=== PATIENT | male | born 1980 | race Caucasian/White ===

== ENCOUNTER 2016-06-27 13:56 | Emergency (ER) | payer OTHER, SELFPAY ==
--- NOTE | 2016-06-27 14:45 | REP ---
CT Head without contrast HISTORY: Altered mental status COMPARISON: None There is no intraparenchymal hemorrhage, acute infarct, mass or midline shift. The ventricular system is normal in appearance. There is no extra cerebral collection. There is no fracture. The visualized sinuses are clear. IMPRESSION: There is no intracranial lesion. Signed by Mariusz Herman MD 06/27/2016 02:38 P
--- NOTE | 2016-06-27 14:56 | REP ---
Clinical: Shortness of breath . Comparison: 07/30/2015 . Findings: The mediastinum and cardiac silhouette are stable and within normal limits for portable technique. The lung woodard are clear without acute consolidation, effusion, or pneumothorax. Skeletal structures are intact. Impression: No focal consolidation. No acute cardiopulmonary process. Signed by Kenji Cook MD 06/27/2016 02:47 P
[2016-06-27 14:58] LABS: BASO % 0.4 % (0.0-1.0); EOS # 0.1 K/mm3 (0.0-0.50); EOS % 0.7 % (0.0-3.0); LARGE UNSTAINED CELL # 0.3 K/mm3 (0.0-0.4); LARGE UNSTAINED CELL % 2.7 % (0.0-4.0); LYMPH # 2.1 K/mm3 (1.5-4.5); LYMPH % 17.9 % (24.0-44.0); MEAN CORPUSCULAR HEMOGLOBIN 30.1 pg (27.0-33.0); MEAN CORPUSCULAR HGB CONC 34.8 g/dl (32.0-36.5); MEAN CORPUSCULAR VOLUME 86.7 fl (80.0-96.0); MONO # 0.6 K/mm3 (0.0-0.8); MONO % 5.1 % (0.0-5.0); NEUTROPHILS # 8.7 K/mm3 (1.8-7.7); NEUTROPHILS % 73.3 % (36.0-66.0); PLATELET COUNT, AUTOMATED 268 k/mm3 (150-450); RED CELL DISTRIBUTION WIDTH 13.1 % (11.5-14.5); WHITE BLOOD COUNT 11.8 K/mm3 (4.0-10.0)
[2016-06-27 15:01] LABS: ABG BASE EXCESS -0.4 (-2.0-2.0); ABG DEVICE NASAL CANN; ABG PARTIAL PRESSURE CO2 34.3 mmHg (35.0-45.0); ABG PARTIAL PRESSURE O2 102.2 mmHg (75.0-100.0); ABG STANDARD HCO3 24.2 MEQ/L (22.0-26.0); ABG pH (ARTERIAL) 7.444 UNITS (7.350-7.450)
[2016-06-27 15:20] LABS: ALBUMIN 4.3 GM/DL (3.2-5.2); ALBUMIN/GLOBULIN RATIO 1.59 (1.00-1.93); ALKALINE PHOSPHATASE 63 U/L (45-117); ALT/SGPT 31 U/L (12-78); ANION GAP 15 MEQ/L (8-16); AST/SGOT 25 U/L (15-37); BILIRUBIN,DIRECT 0.1 MG/DL (0.0-0.2); BILIRUBIN,TOTAL 0.6 MG/DL (0.2-1.0); BLOOD UREA NITROGEN 11 MG/DL (7-18); CALCIUM LEVEL 9.1 MG/DL (8.5-10.1); CARBON DIOXIDE LEVEL 24 MEQ/L (21-32); CHLORIDE LEVEL 102 MEQ/L (98-107); CREATININE FOR GFR 1.45 MG/DL (0.70-1.30); GLUCOSE, FASTING 174 MG/DL (70-105); POTASSIUM SERUM 3.2 MEQ/L (3.5-5.1); SODIUM LEVEL 141 MEQ/L (136-145)
[2016-06-27 15:51] LABS: AMPHETAMINES LEVEL URINE NEGATIVE (NEGATIVE); BENZODIAZEPINES URINE NEGATIVE (NEGATIVE); COCAINE METABOLITE URINE NEGATIVE (NEGATIVE); CONTROL LINE INT CTR LINE PRESENT; METHADONE URINE NEGATIVE (NEGATIVE); OPIATES URINE NEGATIVE (NEGATIVE); TRICYCLIC ANTIDEPRESS URINE NEGATIVE (NEGATIVE)
[2016-06-27] MEDS ORDERED: POTASSIUM CHLORIDE 10 MEQ SR TABLET As Ordered ONE (16:10)
--- NOTE | 2016-06-27 17:39 | EDDOCDS ---
Nurse's Notes [facility] Name: Tomas Rico Age: 36 yrs Sex: Male : 1980 Arrival Date: 06/27/2016 Time: 13:56 Bed 17 Private MD: Diagnosis: Adverse effect of cannabis (derivatives) Presentation: 06/27 14:05 Presenting complaint: EMS states: Friends were smoking pot while he was in room. Went mcp upstairs to bathroom and came back down hyperventilating and was numb. Denies any drug use. Suicide/Homicide risk assessment- the patient denies having any suicidal and/or homicidal ideations and does not present with any other emotional, behavioral or mental health complaints. Status: Patient is not a special services director or dependent. Transition of care: patient was not received from another setting of care. Care prior to arrival: Glucose check. 147. 14:05 Acuity: LEONID Level 3 [facility] 14:05 Method Of Arrival: Ambulance [facility] Triage Assessment: 15:32 HIV screening NA for this visit Offered previously. The patient is triaged at the [facility] bedside. See Assessment in Nurses Notes section of ED record. Historical: - Allergies: no known allergies; - Home Meds: 1. Unknown - PMHx: none; - PSHx: Knee surgery- Right; Hernia repair- Umbilical; - Social history: Smoking status: Patient uses tobacco products, light tobacco smoker. No barriers to communication noted, The patient speaks fluent [place]rugu[place]. - Family history: Not pertinent. - : The pt / caregiver states he / she is not on anticoagulants. Home medication list is obtained from the patient. - Exposure Risk Screening:: None identified. Screenin:00 Screening information is obtained from the patient. Fall risk: At risk due to apparent ld5 chemical impairment. Assistance ADL's: requires no assistance with activities of daily living. Abuse/DV Screen: The patient / caregiver reports he/she is: not in a situation that causes fear, pain or injury. Nutritional screening: No deficits noted. Advance Directives: Currently, there is no health care proxy. home support is adequate. Assessment: 14:10 General: Appears in no apparent distress, Behavior is drowsy. Pain: Unable to use pain mcp scale. Patient is disoriented. 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 Moves all extremities. Speech pt grunting mostly but does respond with yes or no answers. Cardiovascular: Rhythm is sinus rhythm No ectopy. Respiratory: Airway is patent Respiratory effort is even, unlabored. Derm: Skin is pink, warm & dry. 15:19 General: Appears in no apparent distress. Pain: Unable to use pain scale. Patient is ld5 disoriented. Neurological: pt minimally responsive at this time. Pt unable to follow commands upon this RN's assessment. EENT: Poor dentition noted. Absence of teeth noted - many. Respiratory: Airway is patent Respiratory effort is even, unlabored, Breath sounds are clear bilaterally. GI: Abdomen is non- distended Bowel sounds present X 4 quads. Abd is soft and non tender X 4 quads. Derm: Skin is intact, Skin is dry. 16:13 General: Pt easily arouses to voice. Medicated per orders. Pt able to swallow pills ld5 with no distress. Pt denies pain. Denies any needs. Call tsai within reach. Will continue to monitor. 17:22 General: Pt ambulated through hallway. Tolerated well. Denies pain, dizziness. Provider ld5 aware. Will continue to monitor. 17:36 General: Appears in no apparent distress, Behavior is cooperative. Pain: Denies pain. ld5 Neurological: Level of Consciousness is awake, alert. Respiratory: Airway is patent Respiratory effort is even, unlabored. Vital Signs: 14:22 BP 110 / 57 (auto/); ld5 14:22 Pulse 88 MON; Pulse Ox 97% ; ld5 14:25 BP 109 / 59; Pulse 88; Resp 18; Temp 97.3(TE); Pulse Ox 96% on R/A; Weight 94.6 kg (M); dem1 14:37 BP 107 / 55 (auto/); ld5 14:37 Pulse 84 MON; Pulse Ox 94% ; ld5 14:52 BP 117 / 65 (auto/); ld5 14:52 Pulse 102 MON; Pulse Ox 99% ; ld5 15:07 BP 116 / 63 (auto/); ld5 15:07 Pulse 86 MON; Pulse Ox 96% ; ld5 15:22 BP 118 / 66 (auto/); ld5 15:22 Pulse 90 MON; Pulse Ox 99% ; ld5 15:37 BP 119 / 67 (auto/); ld5 15:37 Pulse 90 MON; Pulse Ox 99% ; ld5 15:52 BP 120 / 67 (auto/); ld5 15:52 Pulse 88 MON; Pulse Ox 98% ; ld5 16:07 BP 125 / 65 (auto/); ld5 16:07 Pulse 88 MON; Pulse Ox 99% ; ld5 16:22 BP 124 / 69 (auto/); ld5 16:22 Pulse 86 MON; Pulse Ox 99% ; ld5 16:37 BP 124 / 71 (auto/); ld5 16:37 Pulse 86 MON; Pulse Ox 99% ; ld5 16:52 BP 127 / 74 (auto/); ld5 16:52 Pulse 84 MON; Pulse Ox 99% ; ld5 17:19 BP 125 / 75; Pulse 88 MON; Resp 16; Temp 98; Pulse Ox 98% on R/A; Pain 0/10; ld5 Vitals: 14:25 Log In Time N/A - ambulance arrival. [facility] ED Course: 13:57 Patient visited by Jaylin Pennington, Petrographer. deg 13:57 Patient moved to Waiting deg 13:58 Patient moved to 17 deg 14:05 Alex Candelario MD is Attending Physician. br1 14:05 Maintain field IV. Dressing intact. Good blood return noted. Site clean & dry. Gauge & mcp site: #18 left hand. 14:09 Triage Initiated [facility] 14:21 Patient visited by Alex Candelario MD. br1 14:26 Patient visited by Daron Lopez. [facility] 14:26 Patient has correct armband on for positive identification. Placed in gown. Bed in low dem1 position. Call light in reach. Side rails up X2. monitoring tech on. Pulse ox on. NIBP on. 14:54 CT Head Without Contrast Returned. EDMS 14:59 -Arterial Blood Gas Sent. km6 15:05 EKG done. (by ED staff). Reviewed by Alex Candelario MD. nb2 15:08 Patient visited by Kiarra Matos. nb2 15:15 Quick cath inserted 16 Fr. Specimen obtained. Returned clear yellow urine. Patient mcp tolerated well. 15:16 Drug Eval Toxicology ED Only Sent. ld5 15:16 Urinalysis Sent. ld5 15:16 Urine Culture Sent. ld5 15:16 Urine collected. straight cath specimen. Urine specimen sent to lab. ld5 15:21 Patient visited by Nemo Rutledge RN. ld5 15:36 Patient visited by Maddie Eid RN. mcp 15:36 The patient / caregiver is instructed regarding the plan of care and ED course. mcp 15:41 Chest, 1 View Returned. EDMS 15:50 Patient visited by Alex Candelario MD. br1 16:14 Patient visited by Nemo Rutledge RN. ld5 17:00 Patient visited by Nemo Rutledge RN. ld5 17:00 No procedures done that require assistance. ld5 17:23 Patient visited by Nemo Rutledge RN. ld5 17:26 [facility] is Referral Physician. br1 17:36 Discontinued lock intact, bleeding controlled, pressure dressing applied, No ld5 redness/swelling at site. 17:38 Patient visited by Nemo Rutledge RN. ld5 Administered Medications: 15:44 Drug: NS 0.9% 1000 ml [sodium chloride 0.9 % intravenous solution] Route: IV; Rate: 150 ld5 mL/hr; Site: left hand; 17:37 Follow up: IV Status: Completed infusion; Infusion discontinued ld5 16:13 Drug: Potassium Chloride 40 mEq [potassium chloride ER 10 mEq tablet,extended release ld5 (4 tabs)] Route: PO; RT: 14:59 ABG's drawn from right radial artery allens test done and positive pressure held for 5 km6 minutes specimen sent pt. tolerated well. Order Results: Lab Order: Acetaminophen Level; SPEC'M 06/27/16 14:39 Test: ACETAMINOPHEN LEVEL; Value: < 2.0; Range: 10.0-30.0; Abnormal: Below low normal; Units: UG/ML; Status: F Lab Order: CBC with Diff; SPEC'M 06/27/16 14:39 Test: WHITE BLOOD COUNT; Value: 11.8; Range: 4.0-10.0; Abnormal: Above high normal; Units: K/mm3; Status: F Test: RED BLOOD COUNT; Value: 4.92; Range: 4.30-6.10; Units: M/mm3; Status: F Test: HEMOGLOBIN; Value: 14.8; Range: 14.0-18.0; Units: g/dl; Status: F Test: HEMATOCRIT; Value: 42.7; Range: 42.0-52.0; Units: %; Status: F Test: MEAN CORPUSCULAR VOLUME; Value: 86.7; Range: 80.0-96.0; Units: fl; Status: F Test: MEAN CORPUSCULAR HEMOGLOBIN; Value: 30.1; Range: 27.0-33.0; Units: pg; Status: F Test: MEAN CORPUSCULAR HGB CONC; Value: 34.8; Range: 32.0-36.5; Units: g/dl; Status: F Test: RED CELL DISTRIBUTION WIDTH; Value: 13.1; Range: 11.5-14.5; Units: %; Status: F Test: PLATELET COUNT, AUTOMATED; Value: 268; Range: 150-450; Units: k/mm3; Status: F Test: NEUTROPHILS %; Value: 73.3; Range: 36.0-66.0; Abnormal: Above high normal; Units: %; Status: F Test: LYMPH %; Value: 17.9; Range: 24.0-44.0; Abnormal: Below low normal; Units: %; Status: F Test: MONO %; Value: 5.1; Range: 0.0-5.0; Abnormal: Above high normal; Units: %; Status: F Test: EOS %; Value: 0.7; Range: 0.0-3.0; Units: %; Status: F Test: BASO %; Value: 0.4; Range: 0.0-1.0; Units: %; Status: F Test: LARGE UNSTAINED CELL %; Value: 2.7; Range: 0.0-4.0; Units: %; Status: F Test: NEUTROPHILS #; Value: 8.7; Range: 1.8-7.7; Abnormal: Above high normal; Units: K/mm3; Status: F Test: LYMPH #; Value: 2.1; Range: 1.5-4.5; Units: K/mm3; Status: F Test: MONO #; Value: 0.6; Range: 0.0-0.8; Units: K/mm3; Status: F Test: EOS #; Value: 0.1; Range: 0.0-0.50; Units: K/mm3; Status: F Test: BASO #; Value: 0.0; Range: 0.0-0.2; Units: K/mm3; Status: F Test: LARGE UNSTAINED CELL #; Value: 0.3; Range: 0.0-0.4; Units: K/mm3; Status: F Lab Order: Cardiac Injury Profile; [facility] 06/27/16 14:39 Test: CPK CREATINE PHOSPHOKINASE; Value: 174; Range: 39-308; Units: U/L; Status: F Test: CK-MB VALUE MASS; Value: 1.4; Range: 0.0-3.6; Units: NG/ML; Status: F Test: MB/CK RELATIVE INDEX; Value: 0.80; Range: < OR =4; Status: F Test Note: ; DIAGNOSIS CRITERIA MMB ng/ml Relative Index (RI) NON-AMI < or = 5 N/A [place] > 5 < or = 4 AMI > 5 > 4 Lab Order: Drug Eval Toxicology ED Only; SPEC'M 06/27/16 15:15 Test: AMPHETAMINES LEVEL URINE; Value: NEGATIVE; Range: NEGATIVE; Status: F Test: BARBITURATES URINE; Value: NEGATIVE; Range: NEGATIVE; Status: F Test: BENZODIAZEPINES URINE; Value: NEGATIVE; Range: NEGATIVE; Status: F Test: CANNABINOIDS URINE; Value: POSITIVE; Range: NEGATIVE; Abnormal: Above high normal; Status: F Test: COCAINE METABOLITE URINE; Value: NEGATIVE; Range: NEGATIVE; Status: F Test: METHADONE URINE; Value: NEGATIVE; Range: NEGATIVE; Status: F Test: OPIATES URINE; Value: NEGATIVE; Range: NEGATIVE; Status: F Test: TRICYCLIC ANTIDEPRESS URINE; Value: NEGATIVE; Range: NEGATIVE; Status: F Test Note: ; FALSE POSITIVE RESULTS CAN BE CAUSED BY THE USE OF PANTOPRAZOLE (PROTONIX). Lab Order: Liver Profile; SPEC'M 06/27/16 14:39 Test: AST/SGOT; Value: 25; Range: 15-37; Units: U/L; Status: F Test: ALT/SGPT; Value: 31; Range: 12-78; Units: U/L; Status: F Test: ALKALINE PHOSPHATASE; Value: 63; Range: 45-117; Units: U/L; Status: F Test: BILIRUBIN,TOTAL; Value: 0.6; Range: 0.2-1.0; Units: MG/DL; Status: F Test: BILIRUBIN,DIRECT; Value: 0.1; Range: 0.0-0.2; Units: MG/DL; Status: F Test: TOTAL PROTEIN; Value: 7.0; Range: 6.4-8.2; Units: GM/DL; Status: F Test: ALBUMIN; Value: 4.3; Range: 3.2-5.2; Units: GM/DL; Status: F Test: ALBUMIN/GLOBULIN RATIO; Value: 1.59; Range: 1.00-1.93; Status: F Lab Order: MED Profile; SPEC'M 06/27/16 14:39 Test: GLUCOSE, FASTING; Value: 174; Range: 70-105; Abnormal: Above high normal; Units: MG/DL; Status: F Test: BLOOD UREA NITROGEN; Value: 11; Range: 7-18; Units: MG/DL; Status: F Test: CREATININE FOR GFR; Value: 1.45; Range: 0.70-1.30; Abnormal: Above high normal; Units: MG/DL; Status: F Test: GLOMERULAR FILTRATION RATE; Value: 59.0; Range: >60; Abnormal: Below low normal; Status: F Test: SODIUM LEVEL; Value: 141; Range: 136-145; Units: MEQ/L; Status: F Test: POTASSIUM SERUM; Value: 3.2; Range: 3.5-5.1; Abnormal: Below low normal; Units: MEQ/L; Status: F Test: CHLORIDE LEVEL; Value: 102; Range: 98-107; Units: MEQ/L; Status: F Test: CARBON DIOXIDE LEVEL; Value: 24; Range: 21-32; Units: MEQ/L; Status: F Test: ANION GAP; Value: 15; Range: 8-16; Units: MEQ/L; Status: F Test: CALCIUM LEVEL; Value: 9.1; Range: 8.5-10.1; Units: MG/DL; Status: F Test Note: ; Units are mL/min/1.73 m2 Chronic Kidney Disease Staging per NKF: Stage I & II GFR >=60 Normal to Mildly Decreased Stage III GFR 30-59 Moderately Decreased Stage IV GFR 15-29 Severely Decreased Stage V GFR <15 Very Little GFR Left ESRD GFR <15 on CRAFT SUPERINTENDENT Lab Order: Salicylate Level; SPEC'M 06/27/16 14:39 Test: SALICYLATE LEVEL; Value: 1.9; Range: 5.0-30.0; Abnormal: Below low normal; Units: MG/DL; Status: F Lab Order: Thyroid Stimulating Hormone; [facility] 06/27/16 14:39 Test: THYROID STIMULATING HORMONE; Value: 0.978; Range: 0.358-3.740; Units: uIU/ML; Status: F Lab Order: Troponin; [facility] 06/27/16 14:39 Test: TROPONIN I; Value: < 0.02; Range: < 0.10; Units: NG/ML; Status: F Test Note: ; Troponin I Reference Interval for [employer] LOCI: 99th Percentile= 0.00-0.045 ng/ml Risk Stratification: <= 0.10 ng/ml Decreased Risk for Adverse Clinical Events. 0.10-1.50 ng/ml Increased Risk for Adverse Clinical Events. Evaluation of additional criterion and/or repeat testing in 2-6 hours is suggested to rule out myocardial damage. >= 1.50 ng/ml Indicative of Myocardial Injury. Lab Order: Urinalysis; [facility] 06/27/16 15:15 Test: APPEARANCE, URINE; Value: CLEAR; Range: CLEAR; Status: F Test: COLOR, URINE; Value: YELLOW; Range: YELLOW; Status: F Test: PH,URINE; Value: 7.0; Range: 5.0-9.0; Units: UNITS; Status: F Test: SPECIFIC GRAVITY URINE AUTO; Value: 1.012; Range: 1.002-1.035; Status: F Test: PROTEIN, URINE AUTO; Value: NEGATIVE; Range: NEGATIVE; Units: mg/dL; Status: F Test: GLUCOSE, URINE (UA) AUTO; Value: NEGATIVE; Range: NEGATIVE; Units: mg/dL; Status: F Test: KETONE, URINE AUTO; Value: NEGATIVE; Range: NEGATIVE; Units: mg/dL; Status: F Test: UROBILINOGEN, URINE AUTO; Value: 0.2; Range: 0.0-2.0; Units: mg/dL; Status: F Test: BILIRUBIN, URINE AUTO; Value: NEGATIVE; Range: NEGATIVE; Status: F Test: NITRITE, URINE AUTO; Value: NEGATIVE; Range: NEGATIVE; Status: F Test: LEUKOCYTE ESTERASE, URINE AUTO; Value: NEGATIVE; Range: NEGATIVE; Status: F Test: BLOOD, URINE BLOOD; Value: NEGATIVE; Range: NEGATIVE; Status: F Test: WBC, URINE AUTO; Value: 2; Range: 0-3; Units: /HPF; Status: F Test: RBC, URINE AUTO; Value: 3; Range: 0-3; Units: /HPF; Status: F Test: BACTERIA, URINE AUTO; Value: NEGATIVE; Range: NEGATIVE; Status: F Test: SQUAMOUS EPITHELIAL CELL UR AU; Value: 0; Range: 0-6; Units: /HPF; Status: F Test: MUCUS, URINE; Value: SMALL; Range: NEGATIVE; Status: F Test: HYALINE CAST, URINE AUTO; Value: 6; Range: 0-1; Units: /LPF; Status: F Lab Order: -Arterial Blood Gas; SPEC' 06/27/16 14:43 Test: ABG pH (ARTERIAL); Value: 7.444; Range: 7.350-7.450; Units: UNITS; Status: F Test: ABG PARTIAL PRESSURE CO2; Value: 34.3; Range: 35.0-45.0; Abnormal: Below low normal; Units: mmHg; Status: F Test: ABG PARTIAL PRESSURE O2; Value: 102.2; Range: 75.0-100.0; Abnormal: Above high normal; Units: mmHg; Status: F Test: ABG TOTAL CO2; Value: 24.0; Range: 22.0-29.0; Units: MEQ/L; Status: F Test: ABG HCO3; Value: 23.0; Range: 22.0-26.0; Units: MEQ/L; Status: F Test: ABG BASE EXCESS; Value: -0.4; Range: -2.0-2.0; Status: F Test: ABG STANDARD HCO3; Value: 24.2; Range: 22.0-26.0; Units: MEQ/L; Status: F Test: ABG O2 SATURATION; Value: 98.0; Range: 95.0-99.0; Units: %; Status: F Test: ABG DEVICE; Value: NASAL LUIS; Status: F Lab Order: ETHYL ALCOHOL (ETHANOL); SPEC' 06/27/16 14:39 Test: ETHYL ALCOHOL (ETHANOL); Value: < 0.003; Range: 0.000-0.010; Units: %; Status: F Radiology Order: CT Head Without Contrast Test: CT Head Without Contrast REASON FOR EXAMINATION: altered mental status eval for ich; CT Head without contrast; ; HISTORY: Altered mental status; ; COMPARISON: None; ; There is no intraparenchymal hemorrhage, acute infarct, mass or midline shift.; The ventricular system is normal in appearance. There is no extra cerebral; collection. There is no fracture. The visualized sinuses are clear.; ; IMPRESSION: There is no intracranial lesion.; ; ; ; ; Signed by; Mariusz Herman MD 06/27/2016 02:38 P; Radiology Order: Chest, 1 View Test: Chest, 1 View REASON FOR EXAMINATION: Shortness of Breath; Clinical: Shortness of breath .; ; Comparison: 07/30/2015 .; ; Findings:; The mediastinum and cardiac silhouette are stable and within normal limits for; portable technique. The lung woodard are clear without acute consolidation,; effusion, or pneumothorax. Skeletal structures are intact.; ; Impression:; No focal consolidation. No acute cardiopulmonary process.; ; ; Signed by; Kenji Cook MD 06/27/2016 02:47 P; Outcome: 17:00 CT Study completed. ld5 17:27 Discharge ordered by Provider. br1 17:36 Discharge Assessment: Patient awake, alert and oriented x 3. No cognitive and/or ld5 functional deficits noted. Patient verbalized understanding of disposition instructions. patient administered narcotics - no. The following High Risk Discharge criteria are identified: None. Discharged to home ambulatory. Condition: stable. Discharge instructions given to patient, Instructed on discharge instructions, follow up and referral plans. Demonstrated understanding of instructions, Pt was receptive of discharge instructions/ teaching. Property :Personal belongings accompany Pt. 17:38 Patient left the ED. ld5 Signatures: Dispatcher [employer] EDMS Jaylin Pennington, Petrographer Unit deg Maddie Eid RN Hazel Bunn mcp 6 Alex Candelario MD MD br1 Nemo Rutledge RN RN ld5 Daron Lopez1 Kiarra Matos nb2 Corrections: (The following items were deleted from the chart) 15:08 15:08 EKG done. (by ED staff). Reviewed by Alex Candelario MD nb2 nb2 MTDD
--- NOTE | 2016-06-27 17:39 | EDDOCDS ---
Physician Documentation [facility] Name: Tomas Rico Age: 36 yrs Sex: Male : 1980 Arrival Date: 06/27/2016 Time: 13:56 Bed 17 Private MD: Disposition: 06/27/16 17:27 Discharged to Home/Self Care. Impression: Adverse effect of cannabis (derivatives). - Condition is Stable. - Discharge Instructions: Marijuana Abuse-Brief. - Medication Reconciliation, Local Pharmacy Hours form. - Follow up: Private Physician; When: 2 - 3 days; Reason: Recheck today's complaints. Follow up: [facility]; When: 2 - 3 days; Reason: Recheck today's complaints. - Problem is new. - Symptoms are resolved. - Notes: You were seen in the ED for altered mental status and hyperventilating after marijuana use. Bloodwork along with EKG of the heart, CT scan of the head, chest XRay and urine tests showed no other acute findings. As your symptoms have resolved you may return home. Refrain from any marijuana use in the future. You will need to see your primary care doctor for a recheck in the office, please call today to arrange to be seen. If you have no doctor you may arrange to be seen at the [facility]. Return to the ED for any return of confusion, trouble breathing, chest pain, fever, or any other concerns. Historical: - Allergies: no known allergies; - Home Meds: 1. Unknown - PMHx: none; - PSHx: Knee surgery- Right; Hernia repair- Umbilical; - Social history: Smoking status: Patient uses tobacco products, light tobacco smoker. No barriers to communication noted, The patient speaks fluent Arabic. - Family history: Not pertinent. - : The pt / caregiver states he / she is not on anticoagulants. Home medication list is obtained from the patient. - Exposure Risk Screening:: None identified. Vital Signs: 06/27 14:22 BP 110 / 57 (auto/); ld5 14:22 Pulse 88 MON; Pulse Ox 97% ; ld5 14:25 BP 109 / 59; Pulse 88; Resp 18; Temp 97.3(TE); Pulse Ox 96% on R/A; Weight 94.6 kg / dem1 208.56 lbs (M); 14:37 BP 107 / 55 (auto/); ld5 14:37 Pulse 84 MON; Pulse Ox 94% ; ld5 14:52 BP 117 / 65 (auto/); ld5 14:52 Pulse 102 MON; Pulse Ox 99% ; ld5 15:07 BP 116 / 63 (auto/); ld5 15:07 Pulse 86 MON; Pulse Ox 96% ; ld5 15:22 BP 118 / 66 (auto/); ld5 15:22 Pulse 90 MON; Pulse Ox 99% ; ld5 15:37 BP 119 / 67 (auto/); ld5 15:37 Pulse 90 MON; Pulse Ox 99% ; ld5 15:52 BP 120 / 67 (auto/); ld5 15:52 Pulse 88 MON; Pulse Ox 98% ; ld5 16:07 BP 125 / 65 (auto/); ld5 16:07 Pulse 88 MON; Pulse Ox 99% ; ld5 16:22 BP 124 / 69 (auto/); ld5 16:22 Pulse 86 MON; Pulse Ox 99% ; ld5 16:37 BP 124 / 71 (auto/); ld5 16:37 Pulse 86 MON; Pulse Ox 99% ; ld5 16:52 BP 127 / 74 (auto/); ld5 16:52 Pulse 84 MON; Pulse Ox 99% ; ld5 17:19 BP 125 / 75; Pulse 88 MON; Resp 16; Temp 98; Pulse Ox 98% on R/A; Pain 0/10; ld5 MDM: 14:19 Clinical Faculty/Pulse Ox/q 15 min VS ordered. br1 14:19 Accucheck ordered. br1 14:19 IV Saline Lock ordered. br1 14:19 Oxygen at 4L/Min NC or Home dosage ordered. br1 14:19 Rhythm Strip to chart ordered. br1 14:20 Call Respiratory ordered. br1 14:21 Acetaminophen Level Ordered. EDMS 14:21 CBC with Diff Ordered. EDMS 14:21 Cardiac Injury Profile Ordered. EDMS 14:21 Drug Eval Toxicology ED Only Ordered. EDMS 14:21 Liver Profile Ordered. EDMS 14:21 MED Profile Ordered. EDMS 14:21 Salicylate Level Ordered. EDMS 14:21 Thyroid Stimulating Hormone Ordered. EDMS 14:21 Troponin Ordered. EDMS 14:21 Urinalysis Ordered. EDMS 14:21 -Arterial Blood Gas Ordered. EDMS 14:21 Urine Culture Ordered. EDMS 14:22 Chest, 1 View Ordered. EDMS 14:22 CT Head Without Contrast Ordered. EDMS 14:22 ECG WITH READING ER PHYS+CARDIAG ordered. EDMS 14:24 ETHYL ALCOHOL (ETHANOL) Ordered. EDMS 14:28 Call Respiratory complete. deg 15:14 CBC with Diff Reviewed. br1 15:14 -Arterial Blood Gas Reviewed. br1 15:14 CT Head Without Contrast Reviewed. br1 15:27 Acetaminophen Level Reviewed. br1 15:27 MED Profile Reviewed. br1 15:27 Salicylate Level Reviewed. br1 15:27 Cardiac Injury Profile Reviewed. br1 15:27 Liver Profile Reviewed. br1 15:27 Thyroid Stimulating Hormone Reviewed. br1 15:27 Troponin Reviewed. br1 15:27 ETHYL ALCOHOL (ETHANOL) Reviewed. br1 15:28 NS 0.9% 1000 ml IV at 150 mL/hr continuous ordered. br1 15:28 Potassium Chloride Extended Release Tablet 40 mEq PO once ordered. br1 15:55 Drug Eval Toxicology ED Only Reviewed. br1 15:55 Urinalysis Reviewed. br1 15:55 Chest, 1 View Reviewed. br1 17:04 Ambulate Patient to Assess Patient Safety ordered. br1 17:38 Financial registration complete. zo Administered Medications: 15:44 Drug: NS 0.9% 1000 ml [sodium chloride 0.9 % intravenous solution] Route: IV; Rate: 150 ld5 mL/hr; Site: left hand; 17:37 Follow up: IV Status: Completed infusion; Infusion discontinued ld5 16:13 Drug: Potassium Chloride 40 mEq [potassium chloride ER 10 mEq tablet,extended release ld5 (4 tabs)] Route: PO; Signatures: Dispatcher [employer] EDMS Jaylin Pennington, Rocket Motor Tester Unit deg Maddie Eid RN RN mcp Olin, Zoeann zo Roggie, Brian, MD MD br1 Nemo Rutledge RN RN ld5 The chart was reviewed and I authenticate all verbal orders and agree with the evaluation and treatment provided.Corrections: (The following items were deleted from the chart) 14:24 14:21 ETHYL ALCOHOL (ETHANOL)+LAB ordered. EDMS EDMS MTDD
--- NOTE | 2016-06-28 19:44 | ECGEPIP ---
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
--- NOTE | 2016-06-29 18:39 | EDDOCDS ---
Physician Documentation [facility] Name: Tomas Rico Age: 36 yrs Sex: Male : 1980 Arrival Date: 06/27/2016 Time: 13:56 Bed 17 Private MD: Disposition: 06/27/16 17:27 Discharged to Home/Self Care. Impression: Adverse effect of cannabis (derivatives). - Condition is Stable. - Discharge Instructions: Marijuana Abuse-Brief. - Medication Reconciliation, Local Pharmacy Hours form. - Follow up: Private Physician; When: 2 - 3 days; Reason: Recheck today's complaints. Follow up[facility]; When: 2 - 3 days; Reason: Recheck today's complaints. - Problem is new. - Symptoms are resolved. - Notes: You were seen in the ED for altered mental status and hyperventilating after marijuana use. Bloodwork along with EKG of the heart, CT scan of the head, chest XRay and urine tests showed no other acute findings. As your symptoms have resolved you may return home. Refrain from any marijuana use in the future. You will need to see your primary care doctor for a recheck in the office, please call today to arrange to be seen. If you have no doctor you may arrange to be seen at the [facility]. Return to the ED for any return of confusion, trouble breathing, chest pain, fever, or any other concerns. Historical: - Allergies: no known allergies; - Home Meds: 1. Unknown - PMHx: none; - PSHx: Knee surgery- Right; Hernia repair- Umbilical; - Social history: Smoking status: Patient uses tobacco products, light tobacco smoker. No barriers to communication noted, The patient speaks fluent Slovenian. - Family history: Not pertinent. - : The pt / caregiver states he / she is not on anticoagulants. Home medication list is obtained from the patient. - Exposure Risk Screening:: None identified. Vital Signs: 06/27 14:22 BP 110 / 57 (auto/); ld5 14:22 Pulse 88 MON; Pulse Ox 97% ; ld5 14:25 BP 109 / 59; Pulse 88; Resp 18; Temp 97.3(TE); Pulse Ox 96% on R/A; Weight 94.6 kg / dem1 208.56 lbs (M); 14:37 BP 107 / 55 (auto/); ld5 14:37 Pulse 84 MON; Pulse Ox 94% ; ld5 14:52 BP 117 / 65 (auto/); ld5 14:52 Pulse 102 MON; Pulse Ox 99% ; ld5 15:07 BP 116 / 63 (auto/); ld5 15:07 Pulse 86 MON; Pulse Ox 96% ; ld5 15:22 BP 118 / 66 (auto/); ld5 15:22 Pulse 90 MON; Pulse Ox 99% ; ld5 15:37 BP 119 / 67 (auto/); ld5 15:37 Pulse 90 MON; Pulse Ox 99% ; ld5 15:52 BP 120 / 67 (auto/); ld5 15:52 Pulse 88 MON; Pulse Ox 98% ; ld5 16:07 BP 125 / 65 (auto/); ld5 16:07 Pulse 88 MON; Pulse Ox 99% ; ld5 16:22 BP 124 / 69 (auto/); ld5 16:22 Pulse 86 MON; Pulse Ox 99% ; ld5 16:37 BP 124 / 71 (auto/); ld5 16:37 Pulse 86 MON; Pulse Ox 99% ; ld5 16:52 BP 127 / 74 (auto/); ld5 16:52 Pulse 84 MON; Pulse Ox 99% ; ld5 17:19 BP 125 / 75; Pulse 88 MON; Resp 16; Temp 98; Pulse Ox 98% on R/A; Pain 0/10; ld5 MDM: 14:19 Forest And Conservation Worker/Pulse Ox/q 15 min VS ordered. br1 14:19 Accucheck ordered. br1 14:19 IV Saline Lock ordered. br1 14:19 Oxygen at 4L/Min NC or Home dosage ordered. br1 14:19 Rhythm Strip to chart ordered. br1 14:20 Call Respiratory ordered. br1 14:21 Acetaminophen Level Ordered. EDMS 14:21 CBC with Diff Ordered. EDMS 14:21 Cardiac Injury Profile Ordered. EDMS 14:21 Drug Eval Toxicology ED Only Ordered. EDMS 14:21 Liver Profile Ordered. EDMS 14:21 MED Profile Ordered. EDMS 14:21 Salicylate Level Ordered. EDMS 14:21 Thyroid Stimulating Hormone Ordered. EDMS 14:21 Troponin Ordered. EDMS 14:21 Urinalysis Ordered. EDMS 14:21 -Arterial Blood Gas Ordered. EDMS 14:21 Urine Culture Ordered. EDMS 14:22 Chest, 1 View Ordered. EDMS 14:22 CT Head Without Contrast Ordered. EDMS 14:22 ECG WITH READING ER PHYS+CARDIAG ordered. EDMS 14:24 ETHYL ALCOHOL (ETHANOL) Ordered. EDMS 14:28 Call Respiratory complete. deg 15:14 CBC with Diff Reviewed. br1 15:14 -Arterial Blood Gas Reviewed. br1 15:14 CT Head Without Contrast Reviewed. br1 15:27 Acetaminophen Level Reviewed. br1 15:27 MED Profile Reviewed. br1 15:27 Salicylate Level Reviewed. br1 15:27 Cardiac Injury Profile Reviewed. br1 15:27 Liver Profile Reviewed. br1 15:27 Thyroid Stimulating Hormone Reviewed. br1 15:27 Troponin Reviewed. br1 15:27 ETHYL ALCOHOL (ETHANOL) Reviewed. br1 15:28 NS 0.9% 1000 ml IV at 150 mL/hr continuous ordered. br1 15:28 Potassium Chloride Extended Release Tablet 40 mEq PO once ordered. br1 15:55 Drug Eval Toxicology ED Only Reviewed. br1 15:55 Urinalysis Reviewed. br1 15:55 Chest, 1 View Reviewed. br1 17:04 Ambulate Patient to Assess Patient Safety ordered. br1 17:38 Financial registration complete. zo 17:50 [facility] Payment Agreement was scanned into [employer] and attached to record. zo 06/28 12:36 T-Sheet-- Draft Copy was scanned into [employer] and attached to record. gb 12:36 ECG/EKG was scanned into [employer] and attached to record. gb 15:03 PCR was scanned into [employer] and attached to record. gb Administered Medications: 06/27 15:44 Drug: NS 0.9% 1000 ml [sodium chloride 0.9 % intravenous solution] Route: IV; Rate: 150 ld5 mL/hr; Site: left hand; 17:37 Follow up: IV Status: Completed infusion; Infusion discontinued ld5 16:13 Drug: Potassium Chloride 40 mEq [potassium chloride ER 10 mEq tablet,extended release ld5 (4 tabs)] Route: PO; Signatures: Dispatcher [employer] EDMS Jaylin Pennington, Loom Fixer Apprentice Unit deg Maddie Eid RN RN mcp Mary Moore, Reg Reg Max Gonzalez Brian, MD MD br1 Rutledge,Nemo,RN RN ld5 The chart was reviewed and I authenticate all verbal orders and agree with the evaluation and treatment provided.Corrections: (The following items were deleted from the chart) 14:24 14:21 ETHYL ALCOHOL (ETHANOL)+LAB ordered. EDMS EDMS Attachments: 17:50 [facility] Payment Agreement zo 06/28 12:36 T-Sheet-- Draft Copy gb 12:36 ECG/EKG gb Chart Complete MTDD
--- NOTE | 2016-06-29 18:39 | EDDOCDS ---
Physician Documentation [facility] Name: Tomas Rico Age: 36 yrs Sex: Male : 1980 Arrival Date: 06/27/2016 Time: 13:56 Bed 17 Private MD: Disposition: 06/27/16 17:27 Discharged to Home/Self Care. Impression: Adverse effect of cannabis (derivatives). - Condition is Stable. - Discharge Instructions: Marijuana Abuse-Brief. - Medication Reconciliation, Local Pharmacy Hours form. - Follow up: Private Physician; When: 2 - 3 days; Reason: Recheck today's complaints. Follow up: [facility]; When: 2 - 3 days; Reason: Recheck today's complaints. - Problem is new. - Symptoms are resolved. - Notes: You were seen in the ED for altered mental status and hyperventilating after marijuana use. Bloodwork along with EKG of the heart, CT scan of the head, chest XRay and urine tests showed no other acute findings. As your symptoms have resolved you may return home. Refrain from any marijuana use in the future. You will need to see your primary care doctor for a recheck in the office, please call today to arrange to be seen. If you have no doctor you may arrange to be seen at the [facility]. Return to the ED for any return of confusion, trouble breathing, chest pain, fever, or any other concerns. Historical: - Allergies: no known allergies; - Home Meds: 1. Unknown - PMHx: none; - PSHx: Knee surgery- Right; Hernia repair- Umbilical; - Social history: Smoking status: Patient uses tobacco products, light tobacco smoker. No barriers to communication noted, The patient speaks fluent Urdu. - Family history: Not pertinent. - : The pt / caregiver states he / she is not on anticoagulants. Home medication list is obtained from the patient. - Exposure Risk Screening:: None identified. Vital Signs: 06/27 14:22 BP 110 / 57 (auto/); ld5 14:22 Pulse 88 MON; Pulse Ox 97% ; ld5 14:25 BP 109 / 59; Pulse 88; Resp 18; Temp 97.3(TE); Pulse Ox 96% on R/A; Weight 94.6 kg / dem1 208.56 lbs (M); 14:37 BP 107 / 55 (auto/); ld5 14:37 Pulse 84 MON; Pulse Ox 94% ; ld5 14:52 BP 117 / 65 (auto/); ld5 14:52 Pulse 102 MON; Pulse Ox 99% ; ld5 15:07 BP 116 / 63 (auto/); ld5 15:07 Pulse 86 MON; Pulse Ox 96% ; ld5 15:22 BP 118 / 66 (auto/); ld5 15:22 Pulse 90 MON; Pulse Ox 99% ; ld5 15:37 BP 119 / 67 (auto/); ld5 15:37 Pulse 90 MON; Pulse Ox 99% ; ld5 15:52 BP 120 / 67 (auto/); ld5 15:52 Pulse 88 MON; Pulse Ox 98% ; ld5 16:07 BP 125 / 65 (auto/); ld5 16:07 Pulse 88 MON; Pulse Ox 99% ; ld5 16:22 BP 124 / 69 (auto/); ld5 16:22 Pulse 86 MON; Pulse Ox 99% ; ld5 16:37 BP 124 / 71 (auto/); ld5 16:37 Pulse 86 MON; Pulse Ox 99% ; ld5 16:52 BP 127 / 74 (auto/); ld5 16:52 Pulse 84 MON; Pulse Ox 99% ; ld5 17:19 BP 125 / 75; Pulse 88 MON; Resp 16; Temp 98; Pulse Ox 98% on R/A; Pain 0/10; ld5 MDM: 14:19 Dietary Worker/Pulse Ox/q 15 min VS ordered. br1 14:19 Accucheck ordered. br1 14:19 IV Saline Lock ordered. br1 14:19 Oxygen at 4L/Min NC or Home dosage ordered. br1 14:19 Rhythm Strip to chart ordered. br1 14:20 Call Respiratory ordered. br1 14:21 Acetaminophen Level Ordered. EDMS 14:21 CBC with Diff Ordered. EDMS 14:21 Cardiac Injury Profile Ordered. EDMS 14:21 Drug Eval Toxicology ED Only Ordered. EDMS 14:21 Liver Profile Ordered. EDMS 14:21 MED Profile Ordered. EDMS 14:21 Salicylate Level Ordered. EDMS 14:21 Thyroid Stimulating Hormone Ordered. EDMS 14:21 Troponin Ordered. EDMS 14:21 Urinalysis Ordered. EDMS 14:21 -Arterial Blood Gas Ordered. EDMS 14:21 Urine Culture Ordered. EDMS 14:22 Chest, 1 View Ordered. EDMS 14:22 CT Head Without Contrast Ordered. EDMS 14:22 ECG WITH READING ER PHYS+CARDIAG ordered. EDMS 14:24 ETHYL ALCOHOL (ETHANOL) Ordered. EDMS 14:28 Call Respiratory complete. deg 15:14 CBC with Diff Reviewed. br1 15:14 -Arterial Blood Gas Reviewed. br1 15:14 CT Head Without Contrast Reviewed. br1 15:27 Acetaminophen Level Reviewed. br1 15:27 MED Profile Reviewed. br1 15:27 Salicylate Level Reviewed. br1 15:27 Cardiac Injury Profile Reviewed. br1 15:27 Liver Profile Reviewed. br1 15:27 Thyroid Stimulating Hormone Reviewed. br1 15:27 Troponin Reviewed. br1 15:27 ETHYL ALCOHOL (ETHANOL) Reviewed. br1 15:28 NS 0.9% 1000 ml IV at 150 mL/hr continuous ordered. br1 15:28 Potassium Chloride Extended Release Tablet 40 mEq PO once ordered. br1 15:55 Drug Eval Toxicology ED Only Reviewed. br1 15:55 Urinalysis Reviewed. br1 15:55 Chest, 1 View Reviewed. br1 17:04 Ambulate Patient to Assess Patient Safety ordered. br1 17:38 Financial registration complete. zo 17:50 [facility] Payment Agreement was scanned into [employer] and attached to record. zo 06/28 12:36 T-Sheet-- Draft Copy was scanned into [employer] and attached to record. gb 12:36 ECG/EKG was scanned into [employer] and attached to record. gb 15:03 PCR was scanned into [employer] and attached to record. gb Administered Medications: 06/27 15:44 Drug: NS 0.9% 1000 ml [sodium chloride 0.9 % intravenous solution] Route: IV; Rate: 150 ld5 mL/hr; Site: left hand; 17:37 Follow up: IV Status: Completed infusion; Infusion discontinued ld5 16:13 Drug: Potassium Chloride 40 mEq [potassium chloride ER 10 mEq tablet,extended release ld5 (4 tabs)] Route: PO; Signatures: Dispatcher [employer] EDMS Jaylin Pennington, Digital Music Instructor Unit deg Maddie Eid RN RN mcp Mary Moore, Reg Reg Max Gonzalez Brian, MD MD br1 Rutledge,Nemo,RN RN ld5 The chart was reviewed and I authenticate all verbal orders and agree with the evaluation and treatment provided.Corrections: (The following items were deleted from the chart) 14:24 14:21 ETHYL ALCOHOL (ETHANOL)+LAB ordered. EDMS EDMS Attachments: 17:50 [facility] Payment Agreement zo 06/28 12:36 T-Sheet-- Draft Copy gb 12:36 ECG/EKG gb Chart Complete MTDD
--- NOTE | 2016-06-29 18:39 | EDDOCDS ---
Nurse's Notes [facility] Name: Roseanne Rico Age: 36 yrs Sex: Male : 1980 Arrival Date: 06/27/2016 Time: 13:56 Bed 17 Private MD: Diagnosis: Adverse effect of cannabis (derivatives) Presentation: 06/27 14:05 Presenting complaint: EMS states: Friends were smoking pot while he was in room. Went mcp upstairs to bathroom and came back down hyperventilating and was numb. Denies any drug use. Suicide/Homicide risk assessment- the patient denies having any suicidal and/or homicidal ideations and does not present with any other emotional, behavioral or mental health complaints. 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 Transition of care: patient was not received from another setting of care. Care prior to arrival: Glucose check. 147. 14:05 Acuity: LEONID Level 3 [facility] 14:05 Method Of Arrival: Ambulance [facility] Triage Assessment: 15:32 HIV screening NA for this visit Offered previously. The patient is triaged at the [facility] bedside. See Assessment in Nurses Notes section of ED record. Historical: - Allergies: no known allergies; - Home Meds: 1. Unknown - PMHx: none; - PSHx: Knee surgery- Right; Hernia repair- Umbilical; - Social history: Smoking status: Patient uses tobacco products, light tobacco smoker. No barriers to communication noted, The patient speaks fluent P[place]. - Family history: Not pertinent. - : The pt / caregiver states he / she is not on anticoagulants. Home medication list is obtained from the patient. - Exposure Risk Screening:: None identified. Screenin:00 Screening information is obtained from the patient. Fall risk: At risk due to apparent ld5 chemical impairment. Assistance ADL's: requires no assistance with activities of daily living. Abuse/DV Screen: The patient / caregiver reports he/she is: not in a situation that causes fear, pain or injury. Nutritional screening: No deficits noted. Advance Directives: Currently, there is no health care proxy. home support is adequate. Assessment: 14:10 General: Appears in no apparent distress, Behavior is drowsy. Pain: Unable to use pain mcp scale. Patient is disoriented. 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 Moves all extremities. Speech pt grunting mostly but does respond with yes or no answers. Cardiovascular: Rhythm is sinus rhythm No ectopy. Respiratory: Airway is patent Respiratory effort is even, unlabored. Derm: Skin is pink, warm & dry. 15:19 General: Appears in no apparent distress. Pain: Unable to use pain scale. Patient is ld5 disoriented. Neurological: pt minimally responsive at this time. Pt unable to follow commands upon this RN's assessment. EENT: Poor dentition noted. Absence of teeth noted - many. Respiratory: Airway is patent Respiratory effort is even, unlabored, Breath sounds are clear bilaterally. GI: Abdomen is non- distended Bowel sounds present X 4 quads. Abd is soft and non tender X 4 quads. Derm: Skin is intact, Skin is dry. 16:13 General: Pt easily arouses to voice. Medicated per orders. Pt able to swallow pills ld5 with no distress. Pt denies pain. Denies any needs. Call tsai within reach. Will continue to monitor. 17:22 General: Pt ambulated through hallway. Tolerated well. Denies pain, dizziness. Provider ld5 aware. Will continue to monitor. 17:36 General: Appears in no apparent distress, Behavior is cooperative. Pain: Denies pain. ld5 Neurological: Level of Consciousness is awake, alert. Respiratory: Airway is patent Respiratory effort is even, unlabored. Vital Signs: 14:22 BP 110 / 57 (auto/); ld5 14:22 Pulse 88 MON; Pulse Ox 97% ; ld5 14:25 BP 109 / 59; Pulse 88; Resp 18; Temp 97.3(TE); Pulse Ox 96% on R/A; Weight 94.6 kg (M); dem1 14:37 BP 107 / 55 (auto/); ld5 14:37 Pulse 84 MON; Pulse Ox 94% ; ld5 14:52 BP 117 / 65 (auto/); ld5 14:52 Pulse 102 MON; Pulse Ox 99% ; ld5 15:07 BP 116 / 63 (auto/); ld5 15:07 Pulse 86 MON; Pulse Ox 96% ; ld5 15:22 BP 118 / 66 (auto/); ld5 15:22 Pulse 90 MON; Pulse Ox 99% ; ld5 15:37 BP 119 / 67 (auto/); ld5 15:37 Pulse 90 MON; Pulse Ox 99% ; ld5 15:52 BP 120 / 67 (auto/); ld5 15:52 Pulse 88 MON; Pulse Ox 98% ; ld5 16:07 BP 125 / 65 (auto/); ld5 16:07 Pulse 88 MON; Pulse Ox 99% ; ld5 16:22 BP 124 / 69 (auto/); ld5 16:22 Pulse 86 MON; Pulse Ox 99% ; ld5 16:37 BP 124 / 71 (auto/); ld5 16:37 Pulse 86 MON; Pulse Ox 99% ; ld5 16:52 BP 127 / 74 (auto/); ld5 16:52 Pulse 84 MON; Pulse Ox 99% ; ld5 17:19 BP 125 / 75; Pulse 88 MON; Resp 16; Temp 98; Pulse Ox 98% on R/A; Pain 0/10; ld5 Vitals: 14:25 Log In Time N/A - ambulance arrival. [facility] ED Course: 13:57 Patient visited by Jaylin Pennington, Boat Captain. deg 13:57 Patient moved to Waiting deg 13:58 Patient moved to 17 deg 14:05 Bobby Candelario MD is Attending Physician. br1 14:05 Maintain field IV. Dressing intact. Good blood return noted. Site clean & dry. Gauge & mcp site: #18 left hand. 14:09 Triage Initiated [facility] 14:21 Patient visited by Bobby Candelario MD. br1 14:26 Patient visited by Daron Lopez. [facility] 14:26 Patient has correct armband on for positive identification. Placed in gown. Bed in low dem1 position. Call light in reach. Side rails up X2. transporter radiology on. Pulse ox on. NIBP on. 14:54 CT Head Without Contrast Returned. EDMS 14:59 -Arterial Blood Gas Sent. km6 15:05 EKG done. (by ED staff). Reviewed by Bobby Candelario MD. nb2 15:08 Patient visited by Kiarra Matos. nb2 15:15 Quick cath inserted 16 Fr. Specimen obtained. Returned clear yellow urine. Patient mcp tolerated well. 15:16 Drug Eval Toxicology ED Only Sent. ld5 15:16 Urinalysis Sent. ld5 15:16 Urine Culture Sent. ld5 15:16 Urine collected. straight cath specimen. Urine specimen sent to lab. ld5 15:21 Patient visited by Nemo Rutledge RN. ld5 15:36 Patient visited by Maddie Eid RN. mcp 15:36 The patient / caregiver is instructed regarding the plan of care and ED course. mcp 15:41 Chest, 1 View Returned. EDMS 15:50 Patient visited by Bobby Candelario MD. br1 16:14 Patient visited by Nemo Rutledge,DANIELA. ld5 17:00 Patient visited by Nemo Rutledge RN. ld5 17:00 No procedures done that require assistance. ld5 17:23 Patient visited by Nemo Rutledge,DANIELA. ld5 17:26 [facility] is Referral Physician. br1 17:36 Discontinued lock intact, bleeding controlled, pressure dressing applied, No ld5 redness/swelling at site. 17:38 Patient visited by Nemo Rutledge RN. ld5 17:50 [facility] Payment Agreement was scanned into [employer] and attached to record. zo 06/28 12:36 T-Sheet-- Draft Copy was scanned into [employer] and attached to record. gb 12:36 ECG/EKG was scanned into [employer] and attached to record. gb 15:03 PCR was scanned into [employer] and attached to record. gb 20:02 EKG-ADULT Returned. EDMS Administered Medications: 06/27 15:44 Drug: NS 0.9% 1000 ml [sodium chloride 0.9 % intravenous solution] Route: IV; Rate: 150 ld5 mL/hr; Site: left hand; 17:37 Follow up: IV Status: Completed infusion; Infusion discontinued ld5 16:13 Drug: Potassium Chloride 40 mEq [potassium chloride ER 10 mEq tablet,extended release ld5 (4 tabs)] Route: PO; RT: 14:59 ABG's drawn from right radial artery allens test done and positive pressure held for 5 km6 minutes specimen sent pt. tolerated well. Order Results: Lab Order: Acetaminophen Level; SPEC'M 06/27/16 14:39 Test: ACETAMINOPHEN LEVEL; Value: < 2.0; Range: 10.0-30.0; Abnormal: Below low normal; Units: UG/ML; Status: F Lab Order: CBC with Diff; SPEC'M 06/27/16 14:39 Test: WHITE BLOOD COUNT; Value: 11.8; Range: 4.0-10.0; Abnormal: Above high normal; Units: K/mm3; Status: F Test: RED BLOOD COUNT; Value: 4.92; Range: 4.30-6.10; Units: M/mm3; Status: F Test: HEMOGLOBIN; Value: 14.8; Range: 14.0-18.0; Units: g/dl; Status: F Test: HEMATOCRIT; Value: 42.7; Range: 42.0-52.0; Units: %; Status: F Test: MEAN CORPUSCULAR VOLUME; Value: 86.7; Range: 80.0-96.0; Units: fl; Status: F Test: MEAN CORPUSCULAR HEMOGLOBIN; Value: 30.1; Range: 27.0-33.0; Units: pg; Status: F Test: MEAN CORPUSCULAR HGB CONC; Value: 34.8; Range: 32.0-36.5; Units: g/dl; Status: F Test: RED CELL DISTRIBUTION WIDTH; Value: 13.1; Range: 11.5-14.5; Units: %; Status: F Test: PLATELET COUNT, AUTOMATED; Value: 268; Range: 150-450; Units: k/mm3; Status: F Test: NEUTROPHILS %; Value: 73.3; Range: 36.0-66.0; Abnormal: Above high normal; Units: %; Status: F Test: LYMPH %; Value: 17.9; Range: 24.0-44.0; Abnormal: Below low normal; Units: %; Status: F Test: MONO %; Value: 5.1; Range: 0.0-5.0; Abnormal: Above high normal; Units: %; Status: F Test: EOS %; Value: 0.7; Range: 0.0-3.0; Units: %; Status: F Test: BASO %; Value: 0.4; Range: 0.0-1.0; Units: %; Status: F Test: LARGE UNSTAINED CELL %; Value: 2.7; Range: 0.0-4.0; Units: %; Status: F Test: NEUTROPHILS #; Value: 8.7; Range: 1.8-7.7; Abnormal: Above high normal; Units: K/mm3; Status: F Test: LYMPH #; Value: 2.1; Range: 1.5-4.5; Units: K/mm3; Status: F Test: MONO #; Value: 0.6; Range: 0.0-0.8; Units: K/mm3; Status: F Test: EOS #; Value: 0.1; Range: 0.0-0.50; Units: K/mm3; Status: F Test: BASO #; Value: 0.0; Range: 0.0-0.2; Units: K/mm3; Status: F Test: LARGE UNSTAINED CELL #; Value: 0.3; Range: 0.0-0.4; Units: K/mm3; Status: F Lab Order: Cardiac Injury Profile; SPEC'M 06/27/16 14:39 Test: CPK CREATINE PHOSPHOKINASE; Value: 174; Range: 39-308; Units: U/L; Status: F Test: CK-MB VALUE MASS; Value: 1.4; Range: 0.0-3.6; Units: NG/ML; Status: F Test: MB/CK RELATIVE INDEX; Value: 0.80; Range: < OR =4; Status: F Test Note: ; DIAGNOSIS CRITERIA MMB ng/ml Relative Index (RI) NON-AMI < or = 5 N/A [place] > 5 < or = 4 AMI > 5 > 4 Lab Order: Drug Eval Toxicology ED Only; SPEC'M 06/27/16 15:15 Test: AMPHETAMINES LEVEL URINE; Value: NEGATIVE; Range: NEGATIVE; Status: F Test: BARBITURATES URINE; Value: NEGATIVE; Range: NEGATIVE; Status: F Test: BENZODIAZEPINES URINE; Value: NEGATIVE; Range: NEGATIVE; Status: F Test: CANNABINOIDS URINE; Value: POSITIVE; Range: NEGATIVE; Abnormal: Above high normal; Status: F Test: COCAINE METABOLITE URINE; Value: NEGATIVE; Range: NEGATIVE; Status: F Test: METHADONE URINE; Value: NEGATIVE; Range: NEGATIVE; Status: F Test: OPIATES URINE; Value: NEGATIVE; Range: NEGATIVE; Status: F Test: TRICYCLIC ANTIDEPRESS URINE; Value: NEGATIVE; Range: NEGATIVE; Status: F Test Note: ; FALSE POSITIVE RESULTS CAN BE CAUSED BY THE USE OF PANTOPRAZOLE (PROTONIX). Lab Order: Liver Profile; SPEC'M 06/27/16 14:39 Test: AST/SGOT; Value: 25; Range: 15-37; Units: U/L; Status: F Test: ALT/SGPT; Value: 31; Range: 12-78; Units: U/L; Status: F Test: ALKALINE PHOSPHATASE; Value: 63; Range: 45-117; Units: U/L; Status: F Test: BILIRUBIN,TOTAL; Value: 0.6; Range: 0.2-1.0; Units: MG/DL; Status: F Test: BILIRUBIN,DIRECT; Value: 0.1; Range: 0.0-0.2; Units: MG/DL; Status: F Test: TOTAL PROTEIN; Value: 7.0; Range: 6.4-8.2; Units: GM/DL; Status: F Test: ALBUMIN; Value: 4.3; Range: 3.2-5.2; Units: GM/DL; Status: F Test: ALBUMIN/GLOBULIN RATIO; Value: 1.59; Range: 1.00-1.93; Status: F Lab Order: [facility] Profile; [facility]' 06/27/16 14:39 Test: GLUCOSE, FASTING; Value: 174; Range: 70-105; Abnormal: Above high normal; Units: MG/DL; Status: F Test: BLOOD UREA NITROGEN; Value: 11; Range: 7-18; Units: MG/DL; Status: F Test: CREATININE FOR GFR; Value: 1.45; Range: 0.70-1.30; Abnormal: Above high normal; Units: MG/DL; Status: F Test: GLOMERULAR FILTRATION RATE; Value: 59.0; Range: >60; Abnormal: Below low normal; Status: F Test: SODIUM LEVEL; Value: 141; Range: 136-145; Units: MEQ/L; Status: F Test: POTASSIUM SERUM; Value: 3.2; Range: 3.5-5.1; Abnormal: Below low normal; Units: MEQ/L; Status: F Test: CHLORIDE LEVEL; Value: 102; Range: 98-107; Units: MEQ/L; Status: F Test: CARBON DIOXIDE LEVEL; Value: 24; Range: 21-32; Units: MEQ/L; Status: F Test: ANION GAP; Value: 15; Range: 8-16; Units: MEQ/L; Status: F Test: CALCIUM LEVEL; Value: 9.1; Range: 8.5-10.1; Units: MG/DL; Status: F Test Note: ; Units are mL/min/1.73 m2 Chronic Kidney Disease Staging per NKF: Stage I & II GFR >=60 Normal to Mildly Decreased Stage III GFR 30-59 Moderately Decreased Stage IV GFR 15-29 Severely Decreased Stage V GFR <15 Very Little GFR Left ESRD GFR <15 on DIRECTOR SPEECH AND HEARING Lab Order: Salicylate Level; SPEC' 06/27/16 14:39 Test: SALICYLATE LEVEL; Value: 1.9; Range: 5.0-30.0; Abnormal: Below low normal; Units: MG/DL; Status: F Lab Order: Thyroid Stimulating Hormone; SPEC' 06/27/16 14:39 Test: THYROID STIMULATING HORMONE; Value: 0.978; Range: 0.358-3.740; Units: uIU/ML; Status: F Lab Order: Troponin; [facility]' 06/27/16 14:39 Test: TROPONIN I; Value: < 0.02; Range: < 0.10; Units: NG/ML; Status: F Test Note: ; Troponin I Reference Interval for Siemens Centrafuse LOCI: 99th Percentile= 0.00-0.045 ng/ml Risk Stratification: <= 0.10 ng/ml Decreased Risk for Adverse Clinical Events. 0.10-1.50 ng/ml Increased Risk for Adverse Clinical Events. Evaluation of additional criterion and/or repeat testing in 2-6 hours is suggested to rule out myocardial damage. >= 1.50 ng/ml Indicative of Myocardial Injury. Lab Order: Urinalysis; SPEC' 06/27/16 15:15 Test: APPEARANCE, URINE; Value: CLEAR; Range: CLEAR; Status: F Test: COLOR, URINE; Value: YELLOW; Range: YELLOW; Status: F Test: PH,URINE; Value: 7.0; Range: 5.0-9.0; Units: UNITS; Status: F Test: SPECIFIC GRAVITY URINE AUTO; Value: 1.012; Range: 1.002-1.035; Status: F Test: PROTEIN, URINE AUTO; Value: NEGATIVE; Range: NEGATIVE; Units: mg/dL; Status: F Test: GLUCOSE, URINE (UA) AUTO; Value: NEGATIVE; Range: NEGATIVE; Units: mg/dL; Status: F Test: KETONE, URINE AUTO; Value: NEGATIVE; Range: NEGATIVE; Units: mg/dL; Status: F Test: UROBILINOGEN, URINE AUTO; Value: 0.2; Range: 0.0-2.0; Units: mg/dL; Status: F Test: BILIRUBIN, URINE AUTO; Value: NEGATIVE; Range: NEGATIVE; Status: F Test: NITRITE, URINE AUTO; Value: NEGATIVE; Range: NEGATIVE; Status: F Test: LEUKOCYTE ESTERASE, URINE AUTO; Value: NEGATIVE; Range: NEGATIVE; Status: F Test: BLOOD, URINE BLOOD; Value: NEGATIVE; Range: NEGATIVE; Status: F Test: WBC, URINE AUTO; Value: 2; Range: 0-3; Units: /HPF; Status: F Test: RBC, URINE AUTO; Value: 3; Range: 0-3; Units: /HPF; Status: F Test: BACTERIA, URINE AUTO; Value: NEGATIVE; Range: NEGATIVE; Status: F Test: SQUAMOUS EPITHELIAL CELL UR AU; Value: 0; Range: 0-6; Units: /HPF; Status: F Test: MUCUS, URINE; Value: SMALL; Range: NEGATIVE; Status: F Test: HYALINE CAST, URINE AUTO; Value: 6; Range: 0-1; Units: /LPF; Status: F Lab Order: Urine Culture; SPEC'M 06/27/16 15:15 Test: URINE CULTURE; Value: <EXTERNAL COMMENT eCWMed> FULL REPORT IN LAB NOTES (eCW and Medent).; Status: F Test: URINE CULTURE; Value: URINE CULTURE RESULT NO GROWTH; Status: F Lab Order: -Arterial Blood Gas; SPEC'M 06/27/16 14:43 Test: ABG pH (ARTERIAL); Value: 7.444; Range: 7.350-7.450; Units: UNITS; Status: F Test: ABG PARTIAL PRESSURE CO2; Value: 34.3; Range: 35.0-45.0; Abnormal: Below low normal; Units: mmHg; Status: F Test: ABG PARTIAL PRESSURE O2; Value: 102.2; Range: 75.0-100.0; Abnormal: Above high normal; Units: mmHg; Status: F Test: ABG TOTAL CO2; Value: 24.0; Range: 22.0-29.0; Units: MEQ/L; Status: F Test: ABG HCO3; Value: 23.0; Range: 22.0-26.0; Units: MEQ/L; Status: F Test: ABG BASE EXCESS; Value: -0.4; Range: -2.0-2.0; Status: F Test: ABG STANDARD HCO3; Value: 24.2; Range: 22.0-26.0; Units: MEQ/L; Status: F Test: ABG O2 SATURATION; Value: 98.0; Range: 95.0-99.0; Units: %; Status: F Test: ABG DEVICE; Value: NASAL LUIS; Status: F Lab Order: ETHYL ALCOHOL (ETHANOL); SPEC'M 06/27/16 14:39 Test: ETHYL ALCOHOL (ETHANOL); Value: < 0.003; Range: 0.000-0.010; Units: %; Status: F Radiology Order: CT Head Without Contrast Test: CT Head Without Contrast REASON FOR EXAMINATION: altered mental status eval for ich; CT Head without contrast; ; HISTORY: Altered mental status; ; COMPARISON: None; ; There is no intraparenchymal hemorrhage, acute infarct, mass or midline shift.; The ventricular system is normal in appearance. There is no extra cerebral; collection. There is no fracture. The visualized sinuses are clear.; ; IMPRESSION: There is no intracranial lesion.; ; ; ; ; Signed by; Mariusz Herman MD 06/27/2016 02:38 P; Radiology Order: Chest, 1 View Test: Chest, 1 View REASON FOR EXAMINATION: Shortness of Breath; Clinical: Shortness of breath .; ; Comparison: 07/30/2015 .; ; Findings:; The mediastinum and cardiac silhouette are stable and within normal limits for; portable technique. The lung woodard are clear without acute consolidation,; effusion, or pneumothorax. Skeletal structures are intact.; ; Impression:; No focal consolidation. No acute cardiopulmonary process.; ; ; Signed by; Kenji Cook MD 06/27/2016 02:47 P; Radiology Order: EKG-ADULT Test: EKG-ADULT REASON FOR EXAMINATION: dysrhythmia; Stationary ECG Study; [facility] ED; ; Test Date: 2016-06-27; Pat Name: ROSEANNE RICO Department:; Room: -; Gender: M Community Relations Director: angie; : 1980 Requested By: BOBBY Mack; Order Number: [id number] Reading MD: Erum Ross; Measurements; Intervals [place]; Rate: 88 P: 30; DC: 140 QRS: 15; QRSD: 114 T: 29; QT: 384; QTc: 465; Interpretive Statements; SINUS RHYTHM; MODERATE INTRAVENTRICULAR CONDUCTION DELAY; PROLONGED QTC; NO PRIOR FOR COMPARISON; Electronically Signed On 06-28-2016 19:44:33 EST by Erum Ross; Outcome: 17:00 CT Study completed. ld5 17:27 Discharge ordered by Provider. br1 17:36 Discharge Assessment: Patient awake, alert and oriented x 3. No cognitive and/or ld5 functional deficits noted. Patient verbalized understanding of disposition instructions. patient administered narcotics - no. The following High Risk Discharge criteria are identified: None. Discharged to home ambulatory. Condition: stable. Discharge instructions given to patient, Instructed on discharge instructions, follow up and referral plans. Demonstrated understanding of instructions, Pt was receptive of discharge instructions/ teaching. Property :Personal belongings accompany Pt. 17:38 Patient left the ED. ld5 Signatures: Dispatcher [employer] EDMS Jaylin Pennington, Boat Captain Unit deg Maddie Eid, RN RN Mary Hermosillo, Hazel Padilla km6 Max Woodson Brian, MD MD br1 Nemo Rutledge RN RN ld5 Daron Lopez1 Kiarra Matos nb2 Corrections: (The following items were deleted from the chart) 15:08 15:08 EKG done. (by ED staff). Reviewed by Bobby Candelario MD nb2 nb2 Chart Complete MTDD
== END 2016-06-27 17:38 | disposition home or self-care (01) ==
LOC: M ED 13:56
DX: R41.82 Altered mental status, unspecified (principal); T40.7X5A Adverse effect of cannabis (derivatives), initial encounter; X58.XXXA Exposure to other specified factors, initial encounter; Y92.89 Other specified places as the place of occurrence of the external cause; Y93.89 Activity, other specified; Y99.8 Other external cause status; F17.210 Nicotine dependence, cigarettes, uncomplicated
CPT/HCPCS: 36415; 36600; 70450; 71010; 80048; 80076; 80306; 81001; 82550; 82553; 82803; 84443; 85025; 87086; 93005; 93041; 96360; 96361; 99285; G0480

== ENCOUNTER 2016-08-08 16:44 | Emergency (ER) | payer SELFPAY ==
[~2016-08-08] VITALS: Ht 172.7 cm; Wt 93.4 kg
[2016-08-08 18:46] LABS: BASO % 0.6 % (0.0-1.0); EOS % 1.1 % (0.0-3.0); LARGE UNSTAINED CELL # 0.1 K/mm3 (0.0-0.4); LARGE UNSTAINED CELL % 3.7 % (0.0-4.0); LYMPH # 1.1 K/mm3 (1.5-4.5); LYMPH % 31.3 % (24.0-44.0); MEAN CORPUSCULAR HEMOGLOBIN 30.6 pg (27.0-33.0); MEAN CORPUSCULAR HGB CONC 34.2 g/dl (32.0-36.5); MEAN CORPUSCULAR VOLUME 89.6 fl (80.0-96.0); MONO # 0.2 K/mm3 (0.0-0.8); NEUTROPHILS # 1.8 K/mm3 (1.8-7.7); NEUTROPHILS % 56.2 % (36.0-66.0); PLATELET COUNT, AUTOMATED 179 k/mm3 (150-450); RED CELL DISTRIBUTION WIDTH 13.6 % (11.5-14.5); WHITE BLOOD COUNT 3.2 K/mm3 (4.0-10.0)
--- NOTE | 2016-08-08 18:47 | REP ---
Clinical: Cough and fever . Comparison: 06/27/2016 . Technique: PA and lateral. Findings: The mediastinum and cardiac silhouette are normal. The lung woodard are clear and without acute consolidation, effusion, or pneumothorax. The skeletal structures are intact and normal. Impression: 1. No acute cardiopulmonary process. Signed by Kenji Cook MD 08/08/2016 06:39 P
[2016-08-08 19:06] LABS: ANION GAP 4 MEQ/L (8-16); BLOOD UREA NITROGEN 7 MG/DL (7-18); CALCIUM LEVEL 8.8 MG/DL (8.5-10.1); CARBON DIOXIDE LEVEL 32 MEQ/L (21-32); CHLORIDE LEVEL 105 MEQ/L (98-107); CREATININE FOR GFR 1.11 MG/DL (0.70-1.30); GLOMERULAR FILTRATION RATE > 60.0 (>60); GLUCOSE, FASTING 89 MG/DL (70-105); POTASSIUM SERUM 4.2 MEQ/L (3.5-5.1); SODIUM LEVEL 141 MEQ/L (136-145)
[2016-08-08] MEDS ORDERED: MOTR200T44 PO (20:40)
[2016-08-08 20:44] VITALS: BP 122/71
== END 2016-08-08 21:02 | disposition home or self-care (01) ==
LOC: M ED 18:44
DX: J06.9 Acute upper respiratory infection, unspecified (principal); F17.200 Nicotine dependence, unspecified, uncomplicated

== ENCOUNTER 2018-10-21 11:58 | Emergency (ER) | payer MEDICAID, OTHER ==
[~2018-10-21] VITALS: Ht 172.7 cm; Wt 94.1 kg
[~2018-10-21 11:58] MED LIST: MOTR200T44 PO
[2018-10-21] MEDS ORDERED: NS 1,000 ML IV SCH (12:15)
[2018-10-21] MEDS ORDERED: PANTOPRAZOLE 40MG INJ (PROTONIX) (C9113) IV ONE (12:15)
[2018-10-21 12:27] LABS: BASO % 0.4 % (0.0-1.0); EOS % 0.4 % (0.0-3.0); HEMATOCRIT 44.5 % (42.0-52.0); HEMOGLOBIN 15.7 g/dl (13.5-17.5); LYMPH # 1.5 10^3/uL (1.5-4.5); LYMPH % 16.3 % (24.0-44.0); MEAN CORPUSCULAR HEMOGLOBIN 30.5 pg (27.0-33.0); MEAN CORPUSCULAR HGB CONC 35.3 g/dl (32.0-36.5); MEAN CORPUSCULAR VOLUME 86.4 fl (80.0-96.0); MONO # 0.5 10^3/uL (0.0-0.8); MONO % 5.1 % (0.0-5.0); NEUTROPHILS # 7.2 10^3/uL (1.8-7.7); NEUTROPHILS % 77.4 % (36.0-66.0); PLATELET COUNT, AUTOMATED 252 10^3/uL (150-450); RED BLOOD COUNT 5.15 10^6/uL (4.30-6.10); WHITE BLOOD COUNT 9.4 10^3/uL (4.0-10.0)
[2018-10-21 12:38] LABS: INR 0.96; PROTHROMBIN TIME 12.9 SECONDS (12.1-14.4)
--- NOTE | 2018-10-21 12:44 | REP ---
Chest one-view HISTORY: Chest pain Comparison: 08/08/2016 The lungs are clear. The heart is normal in size. The pulmonary vasculature is normal in appearance. Impression: No acute disease. Electronically Signed by Mariusz Herman MD 10/21/2018 12:35 P
[2018-10-21] MEDS ORDERED: KETOROLAC 30 MG/ML VIAL (J1885) IV ONE (13:00)
[2018-10-21 13:07] LABS: ALBUMIN 4.2 GM/DL (3.2-5.2); ALT/SGPT 36 U/L (12-78); BILIRUBIN,DIRECT 0.1 MG/DL (0.0-0.2); BILIRUBIN,TOTAL 0.4 MG/DL (0.2-1.0); BLOOD UREA NITROGEN 13 MG/DL (7-18); CALCIUM LEVEL 9.6 MG/DL (8.5-10.1); CARBON DIOXIDE LEVEL 26 MEQ/L (21-32); CHLORIDE LEVEL 102 MEQ/L (98-107); CK-MB VALUE MASS < 1.0 NG/ML (<3.6); CPK CREATINE PHOSPHOKINASE 131 U/L (39-308); CREATININE FOR GFR 1.17 MG/DL (0.70-1.30); GLOMERULAR FILTRATION RATE > 60.0 (>60); GLUCOSE, FASTING 144 MG/DL (70-100); LIPASE 114 U/L (73-393); MB/CK RELATIVE INDEX 0.76 (< OR =4); NT-PRO BNP 32 PG/ML (<125); POTASSIUM SERUM 4.1 MEQ/L (3.5-5.1); SODIUM LEVEL 137 MEQ/L (136-145); THYROID STIMULATING HORMONE 0.934 uIU/ML (0.358-3.740); TOTAL PROTEIN 7.6 GM/DL (6.4-8.2); TROPONIN I < 0.02 NG/ML (< 0.10)
[2018-10-21] MEDS ORDERED: ISOVUE-370 76% 100ML VIAL (Q9967) As Ordered ONE (13:14)
[2018-10-21] MEDS ORDERED: MORPHINE 4 MG/ML 1ML VIAL/SYRINGE (J2270) IV ONE (13:15)
[2018-10-21] MEDS ORDERED: PROT1TAB2 PO (14:13)
[2018-10-21] MEDS ORDERED: NAPR-837 PO (14:13)
[2018-10-21 14:31] VITALS: BP 122/84
--- NOTE | 2018-10-21 14:40 | REP ---
CT abdomen with IV but without oral contrast: History: Left upper quadrant abdomen pain. CT contrast dose: 100 mL of intravenous Isovue 370. CT findings: Digital preliminary nailer machine radiograph is unremarkable. The lung bases are clear. There is moderate fatty infiltration of the liver with some areas of fat sparing near the gallbladder. No abnormality is seen in the gallbladder or pancreas. No adrenal lesion is seen on either side. The spleen is normal in size and homogeneous in texture. The kidneys enhance symmetrically and are morphologically intact. There is scattered left colonic diverticulosis involving the splenic flexure but there is no CT evidence of diverticulitis. There is no evidence of free intraperitoneal air or abnormal fluid collection. Small and large intestinal bowel loops are normal as visualized. A normal appendix is seen. Impression: Scattered left colonic diverticulosis changes without evidence of diverticulitis. Moderate fatty infiltration of the liver. Otherwise negative CT study of the abdomen with IV contrast. Electronically Signed by Madhav Dawson MD 10/21/2018 08:31 P
--- NOTE | 2018-10-21 16:22 | ECGEPIP ---
[facility] - ED Test Date: 2018-10-21 Pat Name: ROSEANNE POTTS Department: Room: - Gender: Male Quality Assurance Specialist: tc : 1980 Requested By: Erum Ross Order Number: [id number] Reading MD: Erum Ross Measurements Intervals [place] Rate: 68 P: 28 TX: 137 QRS: 16 QRSD: 117 T: 30 QT: 381 QTc: 408 Interpretive Statements SINUS RHYTHM MODERATE INTRAVENTRICULAR CONDUCTION DELAY SHORTER QTC COMPARED 06/27/16 Electronically Signed on 10-21-2018 16:21:58 EDT by Erum Ross
== END 2018-10-21 14:37 | disposition home or self-care (01) ==
LOC: M ED 11:58
DX: R10.9 Unspecified abdominal pain (principal); I45.9 Conduction disorder, unspecified; K57.30 Diverticulosis of large intestine without perforation or abscess without bleeding; K76.0 Fatty (change of) liver, not elsewhere classified; Z72.0 Tobacco use
CPT/HCPCS: 71045; 74160; 80048; 80076; 82550; 82553; 83690; 83880; 84443; 85025; 85610; 93005; 93041; 94760; 96361; 96374; 96375; 99285; C9113; J1885; J2270; Q9967

== ENCOUNTER → 2020-02-20 | Outpatient (CLI) | payer OTHER ==
[~2020-02-20] MED LIST changes: +ATOR1TAB21 PO; +HYDR-3363 PO; +NAPR-837 PO; +PROT1TAB2 PO
== END ==
LOC: M LABSMTC 09:39
PROVIDERS: ATTEND Anesthesiology
DX: Z01.812 Encounter for preprocedural laboratory examination (principal); Z20.828 Contact with and (suspected) exposure to other viral communicable diseases
CPT/HCPCS: C9803; U0003

== ENCOUNTER 2020-02-25 11:23 | Day surgery (SDC) | payer OTHER ==
[~2020-02-25] VITALS: Ht 170.2 cm; Wt 90.3 kg
[~2020-02-25 11:23] MED LIST changes: +NS 1,000 ML IV ONE
[2020-02-25] MEDS ORDERED: fentaNYL 100 MCG/2 ML INJECTION (J3010) As Ordered ONE (12:32)
[2020-02-25] MEDS ORDERED: propofoL 500 MG/50 ML VIAL As Ordered ONE (12:32)
[2020-02-25] MEDS ORDERED: LIDOCAINE 2% 100MG/5ML SDV (FOR ANES.) As Ordered ONE (12:32)
--- NOTE | 2020-02-25 12:34 | ROOR ---
Patient Name: Tomas iRco Procedure Date: 02/25/2020 12:15 PM Date of : 1980 Age: 39 Room: [facility] Gender: Male Note Status: Finalized Procedure: Upper Endoscopy + Biopsies Indications: Upper abdominal pain Providers: Erasmo Shearer MD Referring MD: Felicity Martins NP Requesting Provider: Medicines: Monitored Anesthesia Care Complications: No immediate complications. Procedure: Pre-Anesthesia Assessment: - The heart rate, respiratory rate, oxygen saturations, blood pressure, adequacy of pulmonary ventilation, and response to care were monitored throughout the procedure. The Endoscope was introduced through the mouth, and advanced to the second part of duodenum. The upper GI endoscopy was accomplished without difficulty. The patient tolerated the procedure well. Findings: The Z-line was variable and was found 40 cm from the incisors. Multiple biopsies were obtained with cold forceps for evaluation to rule out Kang's Esophagus randomly at the gastroesophageal junction. No other significant abnormalities were identified in a careful examination of the stomach. Biopsies were taken with a cold forceps in the gastric antrum for Helicobacter pylori testing. The exam of the duodenum was otherwise normal. Impression: - Z-line variable, 40 cm from the incisors. - Multiple biopsies were obtained at the gastroesophageal junction. - Biopsies were taken with a cold forceps for Helicobacter pylori testing. - The examination was otherwise normal. Recommendation: - Patient has a contact number available for emergencies. The signs and symptoms of potential delayed complications were discussed with the patient. Return to normal activities tomorrow. Written discharge instructions were provided to the patient. - High fiber diet. - Discharge patient to home. - Follow an antireflux regimen. - Continue present medications. - Await pathology results. - Telephone GI clinic for pathology results in 1 week. - Return to referring physician. - The findings and recommendations were discussed with the patient. Erasmo Shearer MD Erasmo Shearer MD 02/25/2020 12:33:30 PM Electronically signed by Erasmo Shearer MD Number of Addenda: 0 Note Initiated On: 02/25/2020 12:15 PM Estimated Blood Loss: Estimated blood loss: none.
[2020-02-25 12:55] VITALS: BP 117/83
== END 2020-02-25 13:03 | disposition home or self-care (01) ==
LOC: M OPP 11:23
PROVIDERS: ATTEND Internal Medicine Gastroenterology
DX: R10.10 Upper abdominal pain, unspecified (principal); K22.8 Other specified diseases of esophagus
CPT/HCPCS: 43239; 88305; J3010

== ENCOUNTER → 2021-06-08 | Outpatient (CLI) | payer OTHER ==
[~2021-06-08] MED LIST changes: +EQ M PO; -NS 1,000 ML IV ONE; +PARO5TAB PO; +SERT-141 PO
== END ==
LOC: M LABSMTC 09:29
PROVIDERS: ATTEND Anesthesiology
DX: Z01.812 Encounter for preprocedural laboratory examination (principal); Z20.822 Contact with and (suspected) exposure to COVID-19

== ENCOUNTER 2021-06-13 07:37 | Day surgery (SDC) | payer OTHER ==
[~2021-06-13] VITALS: Ht 172.7 cm; Wt 89.8 kg
[~2021-06-13 07:37] MED LIST changes: +NS 1,000 ML IV ONE
[2021-06-13] MEDS ORDERED: LIDOCAINE 2% 100MG/5ML SDV (FOR ANES.) As Ordered ONE (08:17)
[2021-06-13] MEDS ORDERED: fentaNYL 100 MCG/2 ML INJECTION (J3010) As Ordered ONE (08:17)
[2021-06-13] MEDS ORDERED: propofoL 500 MG/50 ML VIAL As Ordered ONE (08:17)
[2021-06-13 09:30] VITALS: BP 111/70
== END 2021-06-13 09:41 | disposition home or self-care (01) ==
LOC: M OPP 07:37
PROVIDERS: ATTEND Internal Medicine Gastroenterology
DX: K63.5 Polyp of colon (principal); K57.30 Diverticulosis of large intestine without perforation or abscess without bleeding; K64.0 First degree hemorrhoids; R19.4 Change in bowel habit; K20.91 Esophagitis, unspecified with bleeding; K29.70 Gastritis, unspecified, without bleeding; K44.9 Diaphragmatic hernia without obstruction or gangrene; R12 Heartburn; Z79.899 Other long term (current) drug therapy; F17.210 Nicotine dependence, cigarettes, uncomplicated
CPT/HCPCS: 43239; 45380; 88305; J3010

== ENCOUNTER → 2021-09-19 | Outpatient (CLI) | payer OTHER ==
[~2021-09-19] MED LIST changes: -NS 1,000 ML IV ONE
== END ==
LOC: M CARPUL 07:56
PROVIDERS: ATTEND Nurse Practitioner Family
DX: R06.02 Shortness of breath (principal)

== ENCOUNTER 2023-02-22 15:47 | Emergency (ER) | payer OTHER ==
[~2023-02-22] VITALS: Ht 172.7 cm; Wt 83.9 kg
[2023-02-22] MEDS ORDERED: LORazepam 2 MG/ML 1ML VIAL IV STA (16:27)
[2023-02-22 17:02] LABS: LIPASE 30 U/L (12-53)
[2023-02-22 17:05] LABS: ALBUMIN 5.1 G/DL (3.2-5.2); ALKALINE PHOSPHATASE 71 U/L (46-116); ALT/SGPT 13 U/L (7.0-40); AST/SGOT 21 U/L (<34); BILIRUBIN,DIRECT 0.4 MG/DL (<0.4); BILIRUBIN,TOTAL 0.9 MG/DL (0.3-1.2); BLOOD UREA NITROGEN 9 MG/DL (9-23); CALCIUM LEVEL 10.5 MG/DL (8.5-10.1); CARBON DIOXIDE LEVEL 19 MMOL/L (20-31); CHLORIDE LEVEL 102 MMOL/L (98-107); CREATININE FOR GFR 0.99 MG/DL (0.70-1.30); GLOMERULAR FILTRATION RATE > 60.0 (>60); GLUCOSE, FASTING 161 MG/DL (60-100); POTASSIUM SERUM 4.1 MMOL/L (3.5-5.1); SODIUM LEVEL 141 MMOL/L (136-145)
[2023-02-22 17:06] LABS: BASO # 0.1 10^3/uL (0.0-0.2); BASO % 0.6 % (0.0-1.0); EOS % 0.1 % (0.0-3.0); HEMATOCRIT 44.6 % (42.0-52.0); LYMPH # 1.7 10^3/uL (1.5-5.0); LYMPH % 13.6 % (24.0-44.0); MEAN CORPUSCULAR HEMOGLOBIN 30.5 pg (27.0-33.0); MEAN CORPUSCULAR HGB CONC 35.9 g/dl (32.0-36.5); MEAN CORPUSCULAR VOLUME 85.1 fl (80.0-96.0); MONO # 0.6 10^3/uL (0.0-0.8); MONO % 4.6 % (2.0-8.0); NEUTROPHILS # 9.8 10^3/uL (1.5-8.5); NEUTROPHILS % 80.7 % (36.0-66.0); PLATELET COUNT, AUTOMATED 354 10^3/uL (150-450); RED BLOOD COUNT 5.24 10^6/uL (4.30-6.10); WHITE BLOOD COUNT 12.1 10^3/uL (4.0-10.0)
[2023-02-22] MEDS ORDERED: PANTOPRAZOLE 40MG VIAL IV ONE (17:15)
[2023-02-22 17:42] LABS: ETHYL ALCOHOL (ETHANOL) < 0.003 % (0.000-0.010)
[2023-02-22] MEDS ORDERED: CARA1TAB6 PO (18:24)
[2023-02-22 18:30] VITALS: BP 122/84; TEMP 96.8; O2SAT 97
== END 2023-02-22 18:43 | disposition home or self-care (01) ==
LOC: M ED 15:47
DX: K21.00 Gastro-esophageal reflux disease with esophagitis, without bleeding (principal); K44.9 Diaphragmatic hernia without obstruction or gangrene; M54.50 Low back pain, unspecified; F17.200 Nicotine dependence, unspecified, uncomplicated; Z79.02 Long term (current) use of antithrombotics/antiplatelets; Z79.899 Other long term (current) drug therapy; Z79.810 Long term (current) use of selective estrogen receptor modulators (SERMs)
CPT/HCPCS: 71045; 80048; 80076; 82077; 83690; 85025; 93005; 96374; 96375; 99284; C9113; J2060

== ENCOUNTER → 2023-03-18 | Outpatient (REF) ==
[~2023-03-18] MED LIST changes: +CARA1TAB6 PO
== END ==
LOC: M PLAIMG 10:22
PROVIDERS: ATTEND Internal Medicine
DX: R52 Pain, unspecified (principal)

== ENCOUNTER 2023-05-13 20:52 | Emergency (ER) | payer OTHER ==
[~2023-05-13] VITALS: Ht 172.7 cm; Wt 78.1 kg
[2023-05-13 21:47] LABS: BASO # 0.1 10^3/uL (0.0-0.2); BASO % 0.4 % (0.0-1.0); EOS % 0.2 % (0.0-3.0); HEMATOCRIT 43.3 % (42.0-52.0); HEMOGLOBIN 15.5 g/dl (13.5-17.5); LYMPH # 2.6 10^3/uL (1.5-5.0); LYMPH % 20.4 % (24.0-44.0); MEAN CORPUSCULAR HEMOGLOBIN 30.9 pg (27.0-33.0); MEAN CORPUSCULAR HGB CONC 35.8 g/dl (32.0-36.5); MEAN CORPUSCULAR VOLUME 86.4 fl (80.0-96.0); MONO # 0.8 10^3/uL (0.0-0.8); MONO % 5.8 % (2.0-8.0); NEUTROPHILS # 9.4 10^3/uL (1.5-8.5); PLATELET COUNT, AUTOMATED 316 10^3/uL (150-450); RED BLOOD COUNT 5.01 10^6/uL (4.30-6.10); WHITE BLOOD COUNT 12.9 10^3/uL (4.0-10.0)
[2023-05-13] MEDS ORDERED: FAMOTIDINE IV BAG 20 MG in IV 1 EA IV ONE (22:05)
[2023-05-13] MEDS ORDERED: MAALOX 30 ML SUSP *UDC PO ONE (22:05)
[2023-05-13] MEDS ORDERED: SUCRALFATE 1 GM TAB PO ONE (22:05)
[2023-05-13] MEDS ORDERED: PANTOPRAZOLE 40MG VIAL IV ONE (22:05)
[2023-05-13 22:11] LABS: CPK CREATINE PHOSPHOKINASE 142 U/L (46-171)
[2023-05-13 22:19] LABS: LIPASE 25 U/L (12-53)
[2023-05-13 22:22] LABS: ALBUMIN 4.6 G/DL (3.2-5.2); ALKALINE PHOSPHATASE 64 U/L (46-116); ALT/SGPT 9 U/L (7.0-40); AST/SGOT 18 U/L (<34); BILIRUBIN,DIRECT 0.3 MG/DL (<0.4); BILIRUBIN,TOTAL 0.9 MG/DL (0.3-1.2); BLOOD UREA NITROGEN 7 MG/DL (9-23); CALCIUM LEVEL 9.9 MG/DL (8.5-10.1); CARBON DIOXIDE LEVEL 24 MMOL/L (20-31); CHLORIDE LEVEL 105 MMOL/L (98-107); CK-MB VALUE MASS < 1.0 NG/ML (<3.6); CREATININE FOR GFR 0.88 MG/DL (0.70-1.30); GLOMERULAR FILTRATION RATE > 60.0 (>60); GLUCOSE, FASTING 99 MG/DL (60-100); POTASSIUM SERUM 3.4 MMOL/L (3.5-5.1); SODIUM LEVEL 140 MMOL/L (136-145); TOTAL PROTEIN 7.3 G/DL (5.7-8.2)
[2023-05-13 23:31] LABS: CK-MB VALUE MASS < 1.0 NG/ML (<3.6)
[2023-05-13 23:48] LABS: CPK CREATINE PHOSPHOKINASE 128 U/L (46-171); MB/CK RELATIVE INDEX 0.78 (< OR =4)
[2023-05-14] MEDS ORDERED: PEPC1TAB5 PO (00:27)
[2023-05-14] MEDS ORDERED: CARA1TAB6 PO (00:27)
[2023-05-14 00:30] VITALS: BP 121/79; TEMP 98.2; O2SAT 98
== END 2023-05-14 00:43 | disposition home or self-care (01) ==
LOC: M ED 20:52
DX: K30 Functional dyspepsia (principal); K21.9 Gastro-esophageal reflux disease without esophagitis; R00.0 Tachycardia, unspecified; F17.210 Nicotine dependence, cigarettes, uncomplicated; Z79.899 Other long term (current) drug therapy
CPT/HCPCS: 71045; 80048; 80076; 82550; 82553; 83690; 85025; 93005; 93041; 94760; 96365; 96366; 96375; 99285; C9113; S0028

== ENCOUNTER → 2023-05-27 | Outpatient (CLI) | payer OTHER ==
[~2023-05-27] MED LIST changes: +PEPC1TAB5 PO
== END ==
LOC: M RAD 08:07
PROVIDERS: ATTEND Internal Medicine Gastroenterology
DX: R10.10 Upper abdominal pain, unspecified (principal); K80.20 Calculus of gallbladder without cholecystitis without obstruction

== ENCOUNTER → 2023-07-01 | Outpatient (CLI) | payer OTHER ==
[~2023-07-01] MED LIST changes: +BACL1TAB9 PO; +PRED20TA PO; +TIZA4CAP PO; +TRAZ-252 PO
[2023-07-01 10:11] LABS: BASO % 0.5 % (0.0-1.0); EOS # 0.1 10^3/uL (0.0-0.5); EOS % 1.3 % (0.0-3.0); HEMATOCRIT 42.1 % (42.0-52.0); HEMOGLOBIN 14.6 g/dl (13.5-17.5); LYMPH # 1.3 10^3/uL (1.5-5.0); LYMPH % 22.7 % (24.0-44.0); MEAN CORPUSCULAR HEMOGLOBIN 30.3 pg (27.0-33.0); MEAN CORPUSCULAR HGB CONC 34.7 g/dl (32.0-36.5); MEAN CORPUSCULAR VOLUME 87.3 fl (80.0-96.0); MONO # 0.4 10^3/uL (0.0-0.8); MONO % 7.3 % (2.0-8.0); NEUTROPHILS # 3.8 10^3/uL (1.5-8.5); NEUTROPHILS % 67.8 % (36.0-66.0); PLATELET COUNT, AUTOMATED 218 10^3/uL (150-450); RED BLOOD COUNT 4.82 10^6/uL (4.30-6.10); WHITE BLOOD COUNT 5.6 10^3/uL (4.0-10.0)
[2023-07-01 10:39] LABS: HEMOGLOBIN A1c 5.6 % (4.0-6.0)
[2023-07-01 10:48] LABS: ALBUMIN 3.9 G/DL (3.2-5.2); ALKALINE PHOSPHATASE 58 U/L (46-116); ALT/SGPT 9 U/L (7.0-40); AST/SGOT 20 U/L (<34); BILIRUBIN,TOTAL 0.5 MG/DL (0.3-1.2); BLOOD UREA NITROGEN 11 MG/DL (9-23); CALCIUM LEVEL 9.4 MG/DL (8.5-10.1); CARBON DIOXIDE LEVEL 30 MMOL/L (20-31); CHLORIDE LEVEL 106 MMOL/L (98-107); CHOLESTEROL LEVEL 163 MG/DL (<200); CHOLESTEROL RISK RATIO 3.73 (<5); CREATININE FOR GFR 0.98 MG/DL (0.70-1.30); GLOMERULAR FILTRATION RATE > 60.0 (>60); GLUCOSE, FASTING 104 MG/DL (60-100); HDL CHOLESTEROL 43.6 MG/DL (>40); LDL CHOLESTEROL 89.8 MG/DL (<100); NON-HDL-C 119.4 MG/DL; POTASSIUM SERUM 4.5 MMOL/L (3.5-5.1); SODIUM LEVEL 140 MMOL/L (136-145); TOTAL PROTEIN 6.4 G/DL (5.7-8.2); TRIGLYCERIDES LEVEL 148 MG/DL (<150)
== END ==
LOC: M LAB 09:47
PROVIDERS: ATTEND Physician Assistant Medical
DX: E78.00 Pure hypercholesterolemia, unspecified (principal); E55.9 Vitamin D deficiency, unspecified; Z13.6 Encounter for screening for cardiovascular disorders; Z83.3 Family history of diabetes mellitus

== ENCOUNTER 2023-07-14 06:03 | Day surgery (SDC) | payer OTHER ==
[~2023-07-14] VITALS: Ht 172.7 cm; Wt 76.1 kg
[2023-07-14] MEDS: LR 1,000 ML IV SCH (06:47)
[2023-07-14] MEDS ORDERED: MIDAZOLAM INJ 2MG/2ML VIAL As Ordered ONE (06:59)
[2023-07-14] MEDS ORDERED: fentaNYL 100 MCG/2 ML INJECTION As Ordered ONE (06:59)
[2023-07-14] MEDS ORDERED: LIDOCAINE 2% 100MG/5ML SDV (FOR ANES.) As Ordered ONE (06:59)
[2023-07-14] MEDS ORDERED: propofoL 200 MG/20 ML VIAL As Ordered ONE (06:59)
[2023-07-14] MEDS ORDERED: ePHEDrine SULFATE 25 MG/5 ML(5MG/ML) SYRINGE As Ordered ONE (06:59)
[2023-07-14] MEDS ORDERED: ONDANSETRON 4MG 2ML VIAL As Ordered ONE (06:59)
[2023-07-14] MEDS ORDERED: PHENYLephrine 500MCG 5ML (100MCG/ML) SYRINGE As Ordered ONE (06:59)
[2023-07-14] MEDS ORDERED: ROCURONIUM BROMIDE 50MG/5ML VIAL As Ordered ONE (06:59)
[2023-07-14] MEDS: INDOCYANINE GREEN 25MG VIAL (IC-GREEN) IV ONE (07:30)
[2023-07-14] MEDS: ceFAZolin SOD 2 GM in IV 1 EA IV ONE (07:39)
[2023-07-14] MEDS ORDERED: SUGAMMADEX SODIUM 500 MG/5 ML VIAL (BRIDION) As Ordered ONE (07:45)
[2023-07-14] MEDS: HEPARIN SOD (PORCINE) 5000UNITS/ML 1ML VIAL/SYRINGE SQ ONE (07:47)
[2023-07-14] MEDS ORDERED: dexmedeTOMIDine (4MCG/ML)200MCG/50ML BTL (PRECEDEX) As Ordered ONE (07:50)
[2023-07-14] MEDS ORDERED: KETOROLAC 60MG 2ML VIAL As Ordered ONE (07:59)
[2023-07-14] MEDS ORDERED: GLYCOPYRROLATE INJ 0.2 MG/ML 2 ML VIAL As Ordered ONE (08:10)
[2023-07-14] MEDS ORDERED: HYDROMORPHONE HCL 0.5 MG/ 0.5 ML SYRINGE IV PRN (08:30)
[2023-07-14] MEDS ORDERED: ONDANSETRON 4MG 2ML VIAL IV PRN (08:30)
[2023-07-14] MEDS ORDERED: LR 1,000 ML IV SCH (08:30)
[2023-07-14] MEDS ORDERED: HYDROmorphone HCL 2MG/ML 1ML VIAL As Ordered ONE (08:49)
[2023-07-14] MEDS: fentaNYL 100 MCG/2 ML INJECTION IV PRN (08:58)
[2023-07-14] MEDS: oxyCODONE 5MG TAB PO PRN (09:12)
[2023-07-14] MEDS: HYDROMORPHONE HCL 0.5 MG/ 0.5 ML SYRINGE IV PRN (09:18)
[2023-07-14 10:07] VITALS: BP 128/73; TEMP 97.8; O2SAT 100
== END 2023-07-14 10:34 | disposition home or self-care (01) ==
LOC: M SDC 06:03
PROVIDERS: ATTEND Surgery
DX: K80.10 Calculus of gallbladder with chronic cholecystitis without obstruction (principal); Z79.899 Other long term (current) drug therapy; E78.5 Hyperlipidemia, unspecified; K21.9 Gastro-esophageal reflux disease without esophagitis; F41.9 Anxiety disorder, unspecified; F32.A Depression, unspecified; R07.89 Other chest pain; F12.10 Cannabis abuse, uncomplicated; F17.200 Nicotine dependence, unspecified, uncomplicated
CPT/HCPCS: 47562; 88304; J0665; J0690; J1100; J1170; J1885; J2250; J2371; J2405; J3010; Q9968; S2900

== ENCOUNTER → 2024-08-02 | Outpatient (CLI) | payer OTHER ==
[2024-08-02 10:20] LABS: BASO % 0.6 % (0.0-1.0); EOS % 0.6 % (0.0-3.0); HEMATOCRIT 45.6 % (42.0-52.0); HEMOGLOBIN 15.6 g/dl (13.5-17.5); LYMPH # 0.9 10^3/uL (1.5-5.0); LYMPH % 16.1 % (24.0-44.0); MEAN CORPUSCULAR HEMOGLOBIN 30.2 pg (27.0-33.0); MEAN CORPUSCULAR HGB CONC 34.2 g/dl (32.0-36.5); MEAN CORPUSCULAR VOLUME 88.2 fl (80.0-96.0); MONO # 0.5 10^3/uL (0.0-0.8); NEUTROPHILS # 3.9 10^3/uL (1.5-8.5); NEUTROPHILS % 72.5 % (36.0-66.0); PLATELET COUNT, AUTOMATED 239 10^3/uL (150-450); RED BLOOD COUNT 5.17 10^6/uL (4.30-6.10); WHITE BLOOD COUNT 5.4 10^3/uL (4.0-10.0)
[2024-08-02 10:50] LABS: ALBUMIN 3.9 G/DL (3.2-5.2); ALKALINE PHOSPHATASE 47 U/L (40-129); ALT/SGPT 10 U/L (7.0-40); AST/SGOT 19 U/L (<34); BILIRUBIN,TOTAL 0.7 MG/DL (0.3-1.2); BLOOD UREA NITROGEN 11 MG/DL (9-23); CALCIUM LEVEL 9.5 MG/DL (8.5-10.1); CARBON DIOXIDE LEVEL 29 MMOL/L (20-31); CHLORIDE LEVEL 103 MMOL/L (98-107); CHOLESTEROL LEVEL 172 MG/DL (<200); CHOLESTEROL RISK RATIO 3.06 (<5); CREATININE FOR GFR 1.14 MG/DL (0.70-1.30); GLOMERULAR FILTRATION RATE > 60.0 (>60); GLUCOSE, FASTING 101 MG/DL (60-100); HDL CHOLESTEROL 56.1 MG/DL (>40); LDL CHOLESTEROL 104.7 MG/DL (<100); NON-HDL-C 115.9 MG/DL; POTASSIUM SERUM 4.2 MMOL/L (3.5-5.1); SODIUM LEVEL 141 MMOL/L (136-145); TOTAL PROTEIN 7.2 G/DL (5.7-8.2); TRIGLYCERIDES LEVEL 56 MG/DL (<150)
[2024-08-02 10:51] LABS: TOTAL 25(OH) VITAMIN D 30.7 NG/ML (20.0-100.0)
== END ==
LOC: M LAB 09:17
PROVIDERS: ATTEND Physician Assistant Medical
DX: E55.9 Vitamin D deficiency, unspecified (principal); Z13.6 Encounter for screening for cardiovascular disorders; E78.2 Mixed hyperlipidemia

== ENCOUNTER 2024-09-27 13:51 | Emergency (ER) | payer OTHER, SELFPAY ==
[~2024-09-27] VITALS: Ht 172.7 cm; Wt 88.9 kg
[2024-09-27 15:13] LABS: BASO % 0.6 % (0.0-1.0); EOS % 0.6 % (0.0-3.0); HEMATOCRIT 46.7 % (42.0-52.0); HEMOGLOBIN 16.3 g/dl (13.5-17.5); LYMPH # 1.6 10^3/uL (1.5-5.0); LYMPH % 25.1 % (24.0-44.0); MEAN CORPUSCULAR HEMOGLOBIN 30.4 pg (27.0-33.0); MEAN CORPUSCULAR HGB CONC 34.9 g/dl (32.0-36.5); MEAN CORPUSCULAR VOLUME 87.1 fl (80.0-96.0); MONO # 0.5 10^3/uL (0.0-0.8); MONO % 7.5 % (2.0-8.0); NEUTROPHILS # 4.1 10^3/uL (1.5-8.5); NEUTROPHILS % 65.9 % (36.0-66.0); PLATELET COUNT, AUTOMATED 261 10^3/uL (150-450); RED BLOOD COUNT 5.36 10^6/uL (4.30-6.10); WHITE BLOOD COUNT 6.3 10^3/uL (4.0-10.0)
[2024-09-27 15:26] LABS: INR 0.91; PARTIAL THROMBOPLASTIN TIME 26.9 SECONDS (24.8-34.2); PROTHROMBIN TIME 12.5 SECONDS (12.5-14.5)
[2024-09-27 16:00] LABS: ALBUMIN 4.5 G/DL (3.2-5.2); ALKALINE PHOSPHATASE 60 U/L (40-129); ALT/SGPT 11 U/L (7.0-40); AST/SGOT 18 U/L (<34); BILIRUBIN,DIRECT 0.1 MG/DL (<0.4); BILIRUBIN,TOTAL 0.5 MG/DL (0.3-1.2); BLOOD UREA NITROGEN 11 MG/DL (9-23); CARBON DIOXIDE LEVEL 30 MMOL/L (20-31); CHLORIDE LEVEL 103 MMOL/L (98-107); CREATININE FOR GFR 1.01 MG/DL (0.70-1.30); ETHYL ALCOHOL (ETHANOL) 0.004 % (0.000-0.010); GLOMERULAR FILTRATION RATE > 90.0 (>60); GLUCOSE, FASTING 83 MG/DL (60-100); LIPASE 32 U/L (12-53); POTASSIUM SERUM 4.1 MMOL/L (3.5-5.1); SODIUM LEVEL 143 MMOL/L (136-145); TOTAL PROTEIN 7.6 G/DL (5.7-8.2)
[2024-09-27] MEDS ORDERED: ANUS25SU PR (18:39)
[2024-09-27 18:50] VITALS: BP 140/82; TEMP 98; O2SAT 100
== END 2024-09-27 18:52 | disposition home or self-care (01) ==
LOC: M ED 13:51
DX: K92.2 Gastrointestinal hemorrhage, unspecified (principal); K21.9 Gastro-esophageal reflux disease without esophagitis; F41.9 Anxiety disorder, unspecified; F32.A Depression, unspecified; Z79.02 Long term (current) use of antithrombotics/antiplatelets; Z79.899 Other long term (current) drug therapy; Z79.52 Long term (current) use of systemic steroids